=== PATIENT | female | born 1940 | race Caucasian/White ===

== ENCOUNTER → 2016-04-22 | Outpatient (CLI) | payer MEDICARE, OTHER ==
[2015-11-27 13:08] VITALS: BP 135/73
[~2016-04-22] MED LIST: ACET325T9 PO; AREDIA IM; ASPI-482 PO; ATOR20TA PO; BENA20TA2 PO; CA C1TAB28 PO; CHOL20004 PO; D3/E1CAP PO; DIPH25CA58 PO; DOCU-27 PO; EXEM25TA PO; FURO40TA4 PO; HYDR-2666 PO; INSU100I11 SQ; INSU100V SQ; INSU100V13 SQ; Insulin Detemir SQ; LANO250L TP; LOPE1LIQ7 PO; MAGN2400 PO; MENT5.8L4 MT; METO2.5T PO; MINE120C TP; MUPI22OI2 TP; OMEG1CAP6 PO; POTA20TA12 PO; POTA40LI3 PO; POTA99TA PO; RIVA20TA2 PO; SENN-6 PO; TAMO10TA PO; TAMOXIFEN CITRATE PO; TOLN30CR2 TP; VIT1CAPS12 PO; [UNRECOGNIZED DRUG - CODE]; [UNRECOGNIZED DRUG - CODE] IV; [UNRECOGNIZED DRUG - SUPPLY] TP
== END | disposition home or self-care (01) ==
LOC: SPEC 13:45
PROVIDERS: ATTEND Internal Medicine
DX: I82.401 Acute embolism and thrombosis of unspecified deep veins of right lower extremity (principal)
CPT/HCPCS: 36415; 85610

== ENCOUNTER → 2016-04-26 | Outpatient (CLI) | payer MEDICARE, OTHER ==
[2015-11-27 13:08] VITALS: BP 135/73
[2016-04-26 13:38] LABS: BILIRUBIN,URINE NEG (NEG); CLARITY,URINE CLEAR; COLOR,URINE YELLOW; GLUCOSE,URINE NEG (NEG); NITRITE,URINE NEG (NEG); RBC,URINE 0 /HPF (0-2); UROBILINOGEN,URINE 0.2 mg/dL (0.2 mg/dL)
[2016-04-26 13:39] LABS: BACTERIA,URINE 0 /HPF (0-FEW); SQUAMOUS EPITHELIAL CELL,UR OCC /LPF
== END | disposition home or self-care (01) ==
LOC: SPEC 12:55
PROVIDERS: ATTEND Internal Medicine
DX: N39.0 Urinary tract infection, site not specified (principal)
CPT/HCPCS: 81001; 87086; 87186

== ENCOUNTER → 2016-06-12 | Outpatient (CLI) | payer MEDICARE, OTHER ==
[2015-11-27 13:08] VITALS: BP 135/73
[2016-06-12 03:52] LABS: BILIRUBIN,URINE NEG (NEG); CLARITY,URINE HAZY; COLOR,URINE YELLOW; GLUCOSE,URINE NEG (NEG)
[2016-06-12 03:53] LABS: BACTERIA,URINE MOD /HPF (0-FEW); NITRITE,URINE NEG (NEG); SQUAMOUS EPITHELIAL CELL,UR OCC /LPF; UROBILINOGEN,URINE 0.2 mg/dL (0.2 mg/dL); WBC,URINE 20-40 /HPF (0-4)
== END | disposition home or self-care (01) ==
LOC: SPEC 03:24
PROVIDERS: ATTEND Internal Medicine
DX: N39.0 Urinary tract infection, site not specified (principal)
CPT/HCPCS: 81001; 87086

== ENCOUNTER 2016-08-03 19:11 | Emergency (ER) | payer MEDICARE, OTHER ==
[~2016-08-03] VITALS: Ht 175.3 cm; Wt 100.2 kg
[~2016-08-03 19:11] MED LIST changes: -CHOL20004 PO; +CHOL200074 PO; +DOCU-109 PO; -DOCU-27 PO; -HYDR-2666 PO; +HYDR-2758 PO
[2016-08-03] MEDS ORDERED: IV NORMAL SALINE 1,000ML 1,000 ML IV ONE (19:45)
[2016-08-03] MEDS ORDERED: IV NORMAL SALINE 500ML 500 ML IV ONE (19:45)
--- NOTE | 2016-08-03 19:54 | PHYS DOC ---
Past History Past Medical History: Cancer, Constipation, Diabetes, DVT, High Cholesterol, UTI, Other Past Surgical History: Cancer Surgery, Tonsillectomy, Other Smoking: Non-smoker Alcohol Use: Rarely Drug Use: None Adult General Chief Complaint Chief Complaint: FEVER HPI HPI Patient is a 75 year old female who presents with complaint of fever and cellulitis. Patient states that she started noticing redness and swelling to her right lower extremity. 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 Patient states that 2 weeks ago she was seen and treated with antibiotics for cellulitis. She states that symptoms resolved but then started suddenly again starting last night. The patient denies any associated nausea, vomiting, or weakness. 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 Tejal Donohue of oncology for treatment. The patient states that she is not currently on active chemotherapy medication at this time. Patient denies any thick yellow drainage from the wounds but states that there has been clear yellow drainage on her wound dressings. Review of Systems Review of Systems Constitutional: Fever [] Eyes: Denies change in visual acuity, redness, or eye pain [] HENT: Denies nasal congestion or sore throat [] Respiratory: Denies cough or shortness of breath [] Cardiovascular: Denies chest pain or edema [] GI: Denies abdominal pain, nausea, vomiting, bloody stools or diarrhea [] : Denies dysuria or hematuria [] Musculoskeletal: Denies back pain or joint pain [] Integument: Cellulitis right lower extremity [] Neurologic: Denies headache, focal weakness or sensory changes [] Current Medications Current Medications Current Medications Medications (Trade) Dose Ordered Sig/Lamont Start Time Stop Time Status Last Admin Dose Admin Clindamycin Phosphate 50 ml @ 100 mls/hr 1X ONCE 08/03/16 20:15 08/03/16 20:44 DC 08/03/16 20:47 Sodium Chloride 500 ml @ 0 mls/hr 1X ONCE 08/03/16 19:45 08/03/16 20:03 DC Allergies Allergies Allergies Coded Allergies Type Severity Reaction Last Updated Verified ibuprofen Allergy Unknown 08/03/16 Yes Physical Exam Physical Exam Constitutional: Alert, febrile, appears in no acute distress. [] HENT: Normocephalic, atraumatic, bilateral external ears normal, oropharynx moist, no oral exudates, nose normal. [] Eyes: PERRLA, EOMI, conjunctiva normal, no discharge. [] Neck: Normal range of motion, no tenderness, supple, no stridor. [] Cardiovascular:Heart rate regular rhythm, no murmur [] Lungs & Thorax: Bilateral breath sounds clear to auscultation [] Abdomen: Bowel sounds normal, soft, no tenderness, no masses, no pulsatile masses. [] Skin: Warm, dry, no erythema, no rash. [] Back: No tenderness, no CVA tenderness. [] Extremities: Right lower leg with erythema, induration, and warmth, mildly tender to palpation, dressings of right lateral lower leg ulcer and right foot ulcer with serous drainage. [] Neurologic: Alert and oriented X 3, normal motor function, normal sensory function, no focal deficits noted. [] Current Patient Data Vital Signs Vital Signs Date Time Temp Pulse Resp B/P (MAP) Pulse Ox O2 Delivery O2 Flow Rate FiO2 08/03/16 19:11 100.1 95 18 95 Room Air Lab Results Laboratory Tests Test 08/03/16 20:05 White Blood Count 5.7 x10^3/uL Red Blood Count 4.26 x10^6/uL Hemoglobin 13.0 g/dL Hematocrit 38.9 % Mean Corpuscular Volume 91 fL Mean Corpuscular Hemoglobin 31 pg Mean Corpuscular Hemoglobin Concent 34 g/dL Red Cell Distribution Width 15.7 % Platelet Count 89 x10^3/uL Neutrophils (%) (Auto) 81 % Lymphocytes (%) (Auto) 12 % Monocytes (%) (Auto) 6 % Eosinophils (%) (Auto) 0 % Basophils (%) (Auto) 1 % Neutrophils # (Auto) 4.6 x10^3uL Lymphocytes # (Auto) 0.7 x10^3/uL Monocytes # (Auto) 0.4 x10^3/uL Eosinophils # (Auto) 0.0 x10^3/uL Basophils # (Auto) 0.0 x10^3/uL Sodium Level 140 mmol/L Potassium Level 4.2 mmol/L Chloride Level 100 mmol/L Carbon Dioxide Level 31 mmol/L Anion Gap 9 Blood Urea Nitrogen 26 mg/dL Creatinine 1.2 mg/dL Estimated GFR (Cockcroft-Gault) 43.7 BUN/Creatinine Ratio 22 Glucose Level 111 mg/dL Lactic Acid Level 2.0 mmol/L Calcium Level 10.2 mg/dL Total Bilirubin 0.3 mg/dL Aspartate Amino Transf (AST/SGOT) 18 U/L Alanine Aminotransferase (ALT/SGPT) 24 U/L Alkaline Phosphatase 113 U/L Total Protein 8.3 g/dL Albumin 3.9 g/dL Albumin/Globulin Ratio 0.9 Current Medications Medications (Trade) Dose Ordered Sig/Lamont Route PRN Reason Start Time Stop Time Status Last Admin Dose Admin Sodium Chloride 1,000 ml @ 1,000 mls/hr 1X ONCE IV 08/03/16 19:45 08/03/16 20:44 DC 08/03/16 20:47 Sodium Chloride 500 ml @ 0 mls/hr 1X ONCE IV 08/03/16 19:45 08/03/16 20:03 DC Clindamycin Phosphate 50 ml @ 100 mls/hr 1X ONCE IV 08/03/16 20:15 08/03/16 20:44 DC 08/03/16 20:47 EKG EKG Not performed [] Radiology/Procedures Radiology/Procedures Not performed [] Course & Med Decision Making Course & Med Decision Making Pertinent Labs and Imaging studies reviewed. (See chart for details) Patient started on IV clindamycin in the emergency department. Patient's lab work appears stable at this time and patient does not meet sepsis criteria. The patient states that she would like to go home. The patient is a resident of the [facility] and has access to care under registered nurses and [employer]'s. I reassured the patient that outpatient treatment would be available and patient will be continued on Keflex and Bactrim for treatment of right lower extremity cellulitis. Recommended follow-up in 2 days with primary doctor and return to the emergency department for any worsening symptoms. Patient voiced understanding and in agreement with treatment plan. Dragon Disclaimer Dragon Disclaimer This chart was dictated in whole or in part using Voice Recognition software in a busy, high-work load, and often noisy Emergency Department environment. It may contain unintended and wholly unrecognized errors or omissions. Departure Departure: Impression: Primary Impression: Cellulitis of leg, right Disposition: HOME, SELF-CARE Condition: IMPROVED Referrals: CASS BAKER MD (PCP) Patient Instructions: Cellulitis Additional Instructions: Follow-up with your primary doctor in 2 days for reevaluation. Return to the emergency department for any worsening symptoms. Scripts Sulfamethoxazole/Trimethoprim (BACTRIM DS TABLET) 1 Each Tablet 1 TAB PO BID, #20 TAB Prov: ADELITA PECK MD 08/03/16 Cephalexin (KEFLEX) 500 Mg Capsule 1 CAP PO TID, #30 CAP Prov: ADELITA PECK MD 08/03/16 ADELITA PECK MD Aug 03, 2016 19:54
[2016-08-03] MEDS ORDERED: CLINDAMYCIN 600MG PREMIX 50 ML IV ONE (20:15)
[2016-08-03 20:35] LABS: BASO % 1 % (0-3); EOS % 0 % (0-3); HEMATOCRIT 38.9 % (36.0-47.0); LYMPH # 0.7 x10^3/uL (1.0-4.8); LYMPH % 12 % (24-48); MEAN CORPUSCULAR HEMOGLOBIN 31 pg (25-35); MEAN CORPUSCULAR HGB CONC 34 g/dL (31-37); MEAN CORPUSCULAR VOLUME 91 fL (79-100); MONO # 0.4 x10^3/uL (0.0-1.1); MONO % 6 % (0-9); NEUT # 4.6 x10^3uL (1.8-7.7); NEUT % 81 % (31-73); PLATELET COUNT 89 x10^3/uL (140-400); RED BLOOD COUNT 4.26 x10^6/uL (3.50-5.40); RED CELL DISTRIBUTION WIDTH 15.7 % (11.5-14.5); WHITE BLOOD COUNT 5.7 x10^3/uL (4.0-11.0)
[2016-08-03 20:43] LABS: ALBUMIN 3.9 g/dL (3.4-5.0); ALBUMIN/GLOBULIN RATIO 0.9 (1.0-1.7); CALCIUM 10.2 mg/dL (8.5-10.1); CREATININE 1.2 mg/dL (0.6-1.0); GFR 43.7; POTASSIUM 4.2 mmol/L (3.5-5.1); TOTAL BILIRUBIN 0.3 mg/dL (0.2-1.0); TOTAL PROTEIN 8.3 g/dL (6.4-8.2)
[2016-08-03] MEDS ORDERED: SULF1TAB24 PO (20:59)
[2016-08-03] MEDS ORDERED: CEPH-264 PO (20:59)
[2016-08-03 21:54] VITALS: BP 152/84
== END 2016-08-03 22:10 | disposition home or self-care (01) ==
LOC: ER 19:11
DX: L03.115 Cellulitis of right lower limb (principal); E11.9 Type 2 diabetes mellitus without complications; E78.00 Pure hypercholesterolemia, unspecified; Z86.718 Personal history of other venous thrombosis and embolism; Z87.440 Personal history of urinary (tract) infections; Z88.6 Allergy status to analgesic agent
CPT/HCPCS: 36415; 80053; 83605; 85027; 87040; 99284; J3490; 96365; J7030

== ENCOUNTER → 2016-08-17 | Outpatient (CLI) | payer MEDICARE, OTHER ==
[2016-08-03 21:54] VITALS: BP 152/84
[~2016-08-17] MED LIST changes: +CEPH-264 PO; +SULF1TAB24 PO
[2016-08-18 04:10] LABS: HEMOGLOBIN A1C 6.9 % (4.8-5.6)
== END | disposition home or self-care (01) ==
LOC: SPEC 08:11
PROVIDERS: ATTEND Internal Medicine
DX: E11.40 Type 2 diabetes mellitus with diabetic neuropathy, unspecified (principal); I82.91 Chronic embolism and thrombosis of unspecified vein
CPT/HCPCS: 36415; 80061; 83036

== ENCOUNTER → 2016-10-12 | Outpatient (CLI) | payer MEDICARE, OTHER ==
[~2016-10-12] MED LIST changes: +IOHEXOL 240 MG/ML 50ML VIAL. ONE; +IOHEXOL 240 MG/ML 50ML VIAL. PO ONE; +IOHEXOL 300 MG/ML 75 ML VIAL. IV ONE
[2016-10-12 10:23] LABS: CREATININE 0.9 mg/dL (0.6-1.0); GFR 60.9
--- NOTE | 2016-10-12 16:24 | RAD ---
CT of the chest, abdomen and pelvis with contrast, 10/12/2016: History: Breast cancer follow-up with bone metastases Multidetector CT imaging was performed following oral and IV administration of contrast. The right breast is surgically absent. No axillary adenopathy is seen. There is calcific plaquing of the thoracic aorta without evidence of aneurysm. Several scattered coronary calcifications are noted. No mediastinal or hilar adenopathy is seen. There are small nonspecific bilateral thyroid nodules. There are a few scattered linear parenchymal scars. No pulmonary mass or significant consolidation is seen. There is no evidence of pleural fluid. There are scattered mixed lytic and sclerotic lesions in the bones. These lesions are best demonstrated in the sternum. There are rib lesions as well including the posterior aspect of the right ninth rib where there is a small associated extrapulmonary mass. Similar findings were present on the previous study. There are moderate scattered degenerative changes in the spine. The liver is enlarged measuring 24 cm in craniocaudad extent. No hepatic mass is identified. Small gallstones are present within the dependent aspect of the gallbladder. The gallbladder wall is not thickened. No pancreatic abnormality is seen. The spleen is unremarkable. Small low-density renal lesions are probably cysts, although several of these are too small to definitively characterize. The kidneys show no evidence of obstruction. No adrenal abnormality is detected. An inferior vena cava filter is in place. There are several small lymph nodes between the aorta and inferior vena cava considered to be of borderline size measuring 10 mm in width. There is an enlarged lymph node at the right common iliac artery level measuring 18 mm in short axis dimension. These nodes have increased slightly in size since the previous study of 12/24/2014. The right common iliac lymph node measured 15 mm in short axis dimension on the previous study. The uterus contains multiple calcified masses compatible with fibroids. A 2 x 3 cm cystic structure along the right side of the uterus is of similar size compared. The previous study. This is probably of ovarian origin. The bowel loops are not dilated. There is a small hiatal hernia. No free fluid is evident in the abdomen or pelvis. An internal fixation device is again noted at the right hip. There is extensive multifocal lytic and sclerotic metastatic disease, including the lumbar spine, sacrum and upper pelvis. This has progressed since 12/24/2014. There is an unchanged moderate vertebral compression deformity at L1. A mild superior endplate deformity at T9 is unchanged. Destructive changes at L5 have progressed with partial collapse of the inferior endplate. IMPRESSION: 1. Multifocal mixed lytic and sclerotic metastatic disease. The pelvic and lumbar spine lesions have progressed since 12/24/2014. Comparison with a more recent CT chest study of 11/11/2015 shows no definite progression of the sternal and rib lesions since that exam. 2. Right common iliac adenopathy and borderline periaortic adenopathy has progressed slightly since 12/24/2014. 3. Cholelithiasis. 4. Stable small right ovarian cyst. 5. Coronary artery disease. 6. Other miscellaneous chronic findings as described above. PQRS Compliance Statement: One or more of the following individualized dose reduction techniques were utilized for this examination: 1. Automated exposure control 2. Adjustment of the mA and/or kV according to patient size 3. Use of iterative reconstruction technique
== END | disposition home or self-care (01) ==
LOC: CT 09:32
PROVIDERS: ATTEND Internal Medicine Hematology & Oncology
DX: C79.51 Secondary malignant neoplasm of bone (principal); C79.89 Secondary malignant neoplasm of other specified sites; C50.911 Malignant neoplasm of unspecified site of right female breast; I70.0 Atherosclerosis of aorta; I10 Essential (primary) hypertension; I25.10 Atherosclerotic heart disease of native coronary artery without angina pectoris; E04.2 Nontoxic multinodular goiter; M89.9 Disorder of bone, unspecified; R16.0 Hepatomegaly, not elsewhere classified; K80.20 Calculus of gallbladder without cholecystitis without obstruction; R59.9 Enlarged lymph nodes, unspecified; K44.9 Diaphragmatic hernia without obstruction or gangrene; N83.201 Unspecified ovarian cyst, right side; Z17.0 Estrogen receptor positive status [ER+]; Z90.11 Acquired absence of right breast and nipple; Z96.641 Presence of right artificial hip joint
CPT/HCPCS: 36415; 71260; 74177; 82565; Q9966; Q9967

== ENCOUNTER → 2016-10-18 | Outpatient (CLI) | payer MEDICARE, OTHER ==
[~2016-10-18] MED LIST changes: -IOHEXOL 240 MG/ML 50ML VIAL. ONE; -IOHEXOL 240 MG/ML 50ML VIAL. PO ONE; -IOHEXOL 300 MG/ML 75 ML VIAL. IV ONE
== END | disposition home or self-care (01) ==
LOC: SPEC 15:41
PROVIDERS: ATTEND Internal Medicine
DX: E55.9 Vitamin D deficiency, unspecified (principal); C79.51 Secondary malignant neoplasm of bone; E11.40 Type 2 diabetes mellitus with diabetic neuropathy, unspecified; I10 Essential (primary) hypertension
CPT/HCPCS: 36415

== ENCOUNTER → 2016-11-08 | Outpatient (CLI) | payer MEDICARE, OTHER ==
[2016-11-08 16:42] LABS: ALBUMIN 3.4 g/dL (3.4-5.0); ALBUMIN/GLOBULIN RATIO 0.9 (1.0-1.7); CALCIUM 9.5 mg/dL (8.5-10.1); CREATININE 0.8 mg/dL (0.6-1.0); GFR 69.7; POTASSIUM 3.8 mmol/L (3.5-5.1); TOTAL BILIRUBIN 0.3 mg/dL (0.2-1.0)
[2016-11-08 17:51] LABS: BASO # 0.1 x10^3/uL (0.0-0.2); BASO % 1 % (0-3); EOS # 0.2 x10^3/uL (0.0-0.7); EOS % 3 % (0-3); HEMOGLOBIN 13.2 g/dL (12.0-15.5); LYMPH # 1.5 x10^3/uL (1.0-4.8); LYMPH % 18 % (24-48); MEAN CORPUSCULAR HEMOGLOBIN 35 pg (25-35); MEAN CORPUSCULAR HGB CONC 35 g/dL (31-37); MEAN CORPUSCULAR VOLUME 100 fL (79-100); MONO # 0.7 x10^3/uL (0.0-1.1); MONO % 9 % (0-9); NEUT % 70 % (31-73); PLATELET COUNT 124 x10^3/uL (140-400); RED BLOOD COUNT 3.79 x10^6/uL (3.50-5.40); WHITE BLOOD COUNT 8.6 x10^3/uL (4.0-11.0)
== END | disposition home or self-care (01) ==
LOC: SPEC 16:22
PROVIDERS: ATTEND Internal Medicine Hematology & Oncology
DX: C79.51 Secondary malignant neoplasm of bone (principal); C50.911 Malignant neoplasm of unspecified site of right female breast
CPT/HCPCS: 36415; 80053; 85025

== ENCOUNTER → 2016-12-12 | Outpatient (CLI) | payer MEDICARE, OTHER ==
[2016-12-12 16:15] LABS: BASO # 0.1 x10^3/uL (0.0-0.2); BASO % 1 % (0-3); EOS # 0.1 x10^3/uL (0.0-0.7); EOS % 2 % (0-3); HEMATOCRIT 40.1 % (36.0-47.0); HEMOGLOBIN 13.7 g/dL (12.0-15.5); LYMPH # 1.4 x10^3/uL (1.0-4.8); LYMPH % 22 % (24-48); MEAN CORPUSCULAR HEMOGLOBIN 35 pg (25-35); MEAN CORPUSCULAR HGB CONC 34 g/dL (31-37); MEAN CORPUSCULAR VOLUME 102 fL (79-100); MONO # 0.6 x10^3/uL (0.0-1.1); MONO % 10 % (0-9); NEUT # 4.1 x10^3uL (1.8-7.7); NEUT % 65 % (31-73); PLATELET COUNT 141 x10^3/uL (140-400); RED BLOOD COUNT 3.91 x10^6/uL (3.50-5.40); RED CELL DISTRIBUTION WIDTH 16.3 % (11.5-14.5); WHITE BLOOD COUNT 6.3 x10^3/uL (4.0-11.0)
[2016-12-12 16:16] LABS: ALBUMIN 3.6 g/dL (3.4-5.0); ALBUMIN/GLOBULIN RATIO 0.9 (1.0-1.7); CALCIUM 9.3 mg/dL (8.5-10.1); CREATININE 0.9 mg/dL (0.6-1.0); GFR 60.7; POTASSIUM 4.3 mmol/L (3.5-5.1); TOTAL BILIRUBIN 0.3 mg/dL (0.2-1.0); TOTAL PROTEIN 7.5 g/dL (6.4-8.2)
== END | disposition home or self-care (01) ==
LOC: SPEC 15:25
PROVIDERS: ATTEND Internal Medicine
DX: Z51.11 Encounter for antineoplastic chemotherapy (principal)
CPT/HCPCS: 36415; 80053; 85025

== ENCOUNTER → 2016-12-22 | Outpatient (CLI) | payer MEDICARE, OTHER ==
[2016-12-23 01:08] LABS: HEMOGLOBIN A1C 7.1 % (4.8-5.6)
== END | disposition home or self-care (01) ==
LOC: SPEC 07:37
PROVIDERS: ATTEND Internal Medicine
DX: E11.40 Type 2 diabetes mellitus with diabetic neuropathy, unspecified (principal); E78.5 Hyperlipidemia, unspecified
CPT/HCPCS: 36415; 80061; 83036

== ENCOUNTER → 2016-12-26 | Outpatient (CLI) | payer MEDICARE, OTHER ==
[2016-12-26 17:52] LABS: ALBUMIN 3.4 g/dL (3.4-5.0); ALBUMIN/GLOBULIN RATIO 0.8 (1.0-1.7); CALCIUM 9.7 mg/dL (8.5-10.1); CREATININE 0.7 mg/dL (0.6-1.0); GFR 81.1; POTASSIUM 3.9 mmol/L (3.5-5.1); TOTAL BILIRUBIN 0.3 mg/dL (0.2-1.0); TOTAL PROTEIN 7.7 g/dL (6.4-8.2)
== END | disposition home or self-care (01) ==
LOC: SPEC 16:25
PROVIDERS: ATTEND Social Worker Clinical
DX: Z51.0 Encounter for antineoplastic radiation therapy (principal); Z85.89 Personal history of malignant neoplasm of other organs and systems; Z85.3 Personal history of malignant neoplasm of breast
CPT/HCPCS: 36415; 80053; 86300

== ENCOUNTER → 2016-12-27 | Outpatient (CLI) | payer MEDICARE, OTHER ==
[2016-12-27 15:39] LABS: BASO # 0.1 x10^3/uL (0.0-0.2); BASO % 1 % (0-3); EOS # 0.1 x10^3/uL (0.0-0.7); EOS % 2 % (0-3); HEMATOCRIT 40.2 % (36.0-47.0); HEMOGLOBIN 13.7 g/dL (12.0-15.5); LYMPH # 1.3 x10^3/uL (1.0-4.8); LYMPH % 18 % (24-48); MEAN CORPUSCULAR HEMOGLOBIN 35 pg (25-35); MEAN CORPUSCULAR HGB CONC 34 g/dL (31-37); MEAN CORPUSCULAR VOLUME 102 fL (79-100); MONO # 0.8 x10^3/uL (0.0-1.1); MONO % 11 % (0-9); NEUT # 4.9 x10^3uL (1.8-7.7); NEUT % 68 % (31-73); PLATELET COUNT 160 x10^3/uL (140-400); RED BLOOD COUNT 3.94 x10^6/uL (3.50-5.40); RED CELL DISTRIBUTION WIDTH 16.6 % (11.5-14.5); WHITE BLOOD COUNT 7.2 x10^3/uL (4.0-11.0)
== END | disposition home or self-care (01) ==
LOC: SPEC 15:19
DX: C79.51 Secondary malignant neoplasm of bone (principal); C50.911 Malignant neoplasm of unspecified site of right female breast
CPT/HCPCS: 36415; 85025

== ENCOUNTER → 2017-02-03 | Outpatient (CLI) | payer MEDICARE, OTHER ==
[2017-02-03 14:03] LABS: BASO # 0.1 x10^3/uL (0.0-0.2); BASO % 1 % (0-3); EOS # 0.2 x10^3/uL (0.0-0.7); EOS % 3 % (0-3); HEMATOCRIT 41.3 % (36.0-47.0); HEMOGLOBIN 13.9 g/dL (12.0-15.5); LYMPH # 1.3 x10^3/uL (1.0-4.8); LYMPH % 23 % (24-48); MEAN CORPUSCULAR HEMOGLOBIN 35 pg (25-35); MEAN CORPUSCULAR HGB CONC 34 g/dL (31-37); MEAN CORPUSCULAR VOLUME 103 fL (79-100); MONO # 0.6 x10^3/uL (0.0-1.1); MONO % 10 % (0-9); NEUT # 3.6 x10^3uL (1.8-7.7); NEUT % 63 % (31-73); PLATELET COUNT 146 x10^3/uL (140-400); RED BLOOD COUNT 4.01 x10^6/uL (3.50-5.40); RED CELL DISTRIBUTION WIDTH 18.6 % (11.5-14.5); WHITE BLOOD COUNT 5.8 x10^3/uL (4.0-11.0)
[2017-02-03 14:19] LABS: ALBUMIN 3.6 g/dL (3.4-5.0); ALBUMIN/GLOBULIN RATIO 0.9 (1.0-1.7); CALCIUM 9.4 mg/dL (8.5-10.1); CREATININE 0.7 mg/dL (0.6-1.0); GFR 81.1; POTASSIUM 4.6 mmol/L (3.5-5.1); TOTAL BILIRUBIN 0.4 mg/dL (0.2-1.0); TOTAL PROTEIN 7.4 g/dL (6.4-8.2)
== END | disposition home or self-care (01) ==
LOC: SPEC 13:43
PROVIDERS: ATTEND Internal Medicine Hematology & Oncology
DX: C79.51 Secondary malignant neoplasm of bone (principal); C50.911 Malignant neoplasm of unspecified site of right female breast
CPT/HCPCS: 36415; 80053; 85025; 86300

== ENCOUNTER → 2017-03-01 | Outpatient (CLI) | payer MEDICARE, OTHER | END | disposition home or self-care (01) | LOC: SPEC 12:02 | PROVIDERS: ATTEND Family Medicine | DX: L97.512 Non-pressure chronic ulcer of other part of right foot with fat layer exposed (principal) | CPT/HCPCS: 36415; 85651 ==

== ENCOUNTER → 2017-03-02 | Outpatient (CLI) | payer MEDICARE, OTHER ==
--- NOTE | 2017-03-02 15:41 | RAD ---
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 Comparison: Right foot 11/13/2014. Findings: There are postsurgical changes of the mid shaft first metatarsal, base of the first proximal phalanx and mid shaft fifth metatarsal with fully threaded orthopedic screws which remain intact. There is diffuse bony demineralization. Prior resection at the level of the second proximal phalanx and fourth proximal phalanx. There is moderate mid and forefoot degenerative changes with joint space narrowing and osteophytic spurring. Pes planus deformity of the foot is noted. Enthesophyte formation at the insertion of the Achilles on the calcaneus. Minimal infracalcaneal spur and. Vascular calcifications are noted in the lower leg and hindfoot. No evidence of acute fracture. There is smooth periosteal reaction at the posterior distal fibula seen on the lateral view. Impression: 1. Interval second toe resection at the level of the proximal phalanx. 2. Prior fourth toe resection. 3. Diffuse osteopenia with no radiographic evidence of osteomyelitis. If there is continued clinical concern, three-phase bone scan could be obtained. 4. Smooth periosteal reaction of the distal fibula which is only partially visualized, commonly seen with chronic venous stasis. Clinical correlation is recommended. Dedicated ankle radiographs could be obtained for further evaluation. 5. Pes planus. 6. Moderate scattered osteoarthritis.
== END | disposition home or self-care (01) ==
LOC: DXRAD 13:41
PROVIDERS: ATTEND Family Medicine
DX: E11.621 Type 2 diabetes mellitus with foot ulcer (principal); M19.071 Primary osteoarthritis, right ankle and foot; M21.41 Flat foot [pes planus] (acquired), right foot; Z79.4 Long term (current) use of insulin
CPT/HCPCS: 73630

== ENCOUNTER → 2017-03-16 | Outpatient (CLI) | payer MEDICARE, OTHER ==
[2017-03-17 02:12] LABS: ALBUMIN 3.6 g/dL (3.4-5.0); ALBUMIN/GLOBULIN RATIO 0.9 (1.0-1.7); CALCIUM 9.8 mg/dL (8.5-10.1); GFR 53.8; POTASSIUM 4.3 mmol/L (3.5-5.1); TOTAL BILIRUBIN 0.3 mg/dL (0.2-1.0); TOTAL PROTEIN 7.5 g/dL (6.4-8.2)
== END | disposition home or self-care (01) ==
LOC: SPEC 23:11
PROVIDERS: ATTEND Internal Medicine Hematology & Oncology
DX: C50.911 Malignant neoplasm of unspecified site of right female breast (principal); C79.51 Secondary malignant neoplasm of bone
CPT/HCPCS: 36415; 80053; 86300

== ENCOUNTER → 2017-03-17 | Outpatient (CLI) | payer MEDICARE, OTHER ==
[2017-03-17 12:17] LABS: BASO # 0.1 x10^3/uL (0.0-0.2); BASO % 1 % (0-3); EOS # 0.2 x10^3/uL (0.0-0.7); EOS % 3 % (0-3); HEMATOCRIT 41.6 % (36.0-47.0); HEMOGLOBIN 14.2 g/dL (12.0-15.5); LYMPH # 1.3 x10^3/uL (1.0-4.8); LYMPH % 20 % (24-48); MEAN CORPUSCULAR HEMOGLOBIN 35 pg (25-35); MEAN CORPUSCULAR HGB CONC 34 g/dL (31-37); MEAN CORPUSCULAR VOLUME 102 fL (79-100); MONO # 0.7 x10^3/uL (0.0-1.1); MONO % 11 % (0-9); NEUT # 4.1 x10^3uL (1.8-7.7); NEUT % 65 % (31-73); PLATELET COUNT 148 x10^3/uL (140-400); RED BLOOD COUNT 4.08 x10^6/uL (3.50-5.40); WHITE BLOOD COUNT 6.2 x10^3/uL (4.0-11.0)
== END | disposition home or self-care (01) ==
LOC: SPEC 11:46
PROVIDERS: ATTEND Internal Medicine Hematology & Oncology
DX: C50.911 Malignant neoplasm of unspecified site of right female breast (principal); C79.51 Secondary malignant neoplasm of bone
CPT/HCPCS: 36415; 85025

== ENCOUNTER → 2017-04-16 | Outpatient (CLI) | payer MEDICARE, OTHER ==
[~2017-04-16] MED LIST changes: +CLIN300C8 PO
== END | disposition home or self-care (01) ==
LOC: LAB 15:13
PROVIDERS: ATTEND Internal Medicine
DX: E55.9 Vitamin D deficiency, unspecified (principal); I12.9 Hypertensive chronic kidney disease with stage 1 through stage 4 chronic kidney disease, or unspecified chronic kidney disease; E11.22 Type 2 diabetes mellitus with diabetic chronic kidney disease; N18.3 Chronic kidney disease, stage 3 (moderate)
CPT/HCPCS: 82306

== ENCOUNTER → 2017-04-18 | Outpatient (CLI) | payer MEDICARE, OTHER ==
[~2017-04-18] MED LIST changes: -CLIN300C8 PO
[2017-04-19 02:08] LABS: HEMOGLOBIN A1C 7.4 % (4.8-5.6)
== END ==
LOC: SPEC 07:13
PROVIDERS: ATTEND Internal Medicine
DX: E78.5 Hyperlipidemia, unspecified (principal); E11.40 Type 2 diabetes mellitus with diabetic neuropathy, unspecified; E55.9 Vitamin D deficiency, unspecified; E63.9 Nutritional deficiency, unspecified
CPT/HCPCS: 36415; 80061; 82306; 83036

== ENCOUNTER 2017-05-13 14:24 | Emergency (ER) | payer MEDICARE, OTHER ==
[~2017-05-13] VITALS: Ht 175.3 cm; Wt 101.8 kg
--- NOTE | 2017-05-13 14:28 | PHYS DOC ---
Past History Past Medical History: Cancer, Constipation, Diabetes, DVT, High Cholesterol, Hypertension, UTI, Other Past Surgical History: Cancer Surgery, Tonsillectomy, Other Smoking: Non-smoker Alcohol Use: None Drug Use: None Adult General Chief Complaint Chief Complaint: cellulitis HPI HPI Patient is a 76 year old female who presents with right lower leg redness. She states she's had an infection in this leg and an open wound for several months. She states she has wound care that evaluates and keeps it wrapped for her. She states over the last 3-5 days they've noticed increasing redness around her calf. She denies any fevers chills nausea or vomiting. Wound care called the wound care physician who wanted to be evaluated in the ER. She' s been on antibiotics before but is been quite some time. She states the swelling of her leg is normal. She has no fevers or chills no nausea or vomiting. Review of Systems Review of Systems Constitutional: Denies fever or chills [] Eyes: Denies change in visual acuity, redness, or eye pain [] HENT: Denies nasal congestion or sore throat [] Respiratory: Denies cough or shortness of breath [] Cardiovascular: No additional information not addressed in HPI [] GI: Denies abdominal pain, nausea, vomiting, bloody stools or diarrhea [] : Denies dysuria or hematuria [] Musculoskeletal: Denies back pain or joint pain [] Integument: Positive for redness of her right lower leg Neurologic: Denies headache, focal weakness or sensory changes [] Endocrine: Denies polyuria or polydipsia [] All other systems were reviewed and found to be within normal limits, except as documented in this note. Allergies Allergies Allergies Coded Allergies Type Severity Reaction Last Updated Verified ibuprofen Allergy Unknown 08/03/16 Yes Physical Exam Physical Exam Constitutional: Well developed, well nourished, no acute distress, non-toxic appearance. [] HENT: Normocephalic, atraumatic, bilateral external ears normal, oropharynx moist, no oral exudates, nose normal. [] Eyes: PERRLA, EOMI, conjunctiva normal, no discharge. [] Neck: Normal range of motion, no tenderness, supple, no stridor. [] Cardiovascular:Heart rate regular rhythm, no murmur [] Lungs & Thorax: Bilateral breath sounds clear to auscultation [] Abdomen: Bowel sounds normal, soft, no tenderness, no masses, no pulsatile masses. [] Skin: Warm, dry, mild erythema and warmth around the calf of her right lower extremity Back: No tenderness, no CVA tenderness. [] Extremities: No tenderness, no cyanosis, no clubbing, ROM intact, 1+ lower extremity edema, right leg missing several toes, open wound on right lateral malleolus. Neurologic: Alert and oriented X 3, normal motor function, normal sensory function, no focal deficits noted. [] Psychologic: Affect normal, judgement normal, mood normal. [] EKG EKG [] Radiology/Procedures Radiology/Procedures [] Impressions: Lower extremity cellulitis Course & Med Decision Making Course & Med Decision Making Pertinent Labs and Imaging studies reviewed. (See chart for details) [facility] and states she has a hospital bed and nurse's a check on her frequently. She has erythema of her right lower leg that mildly warm to touch. She does not have any abnormalities with her labs. She does have a history of diabetes, DVT on Xeralto, dyslipidemia. At this point we'll start 300 mg clindamycin to 8 hours for 10 days and have wound care reevaluate. Patient's agreeable plans being discharged in stable condition at this time. Versus antibiotics was provided in the ER. Dragon Disclaimer Dragon Disclaimer This electronic medical record was generated, in whole or in part, using a voice recognition dictation system. Departure Departure: Impression: Primary Impression: Cellulitis of leg, right Disposition: 01 HOME, SELF-CARE Condition: STABLE Referrals: CASS BAKER MD (PCP) Patient Instructions: Cellulitis Additional Instructions: Your being discharged home with antibiotics they can start taking 1 tablet every 8 hours for next 10 days. Your labs do not show any acute abnormalities therefore I'm comfortable sending you home treatment is as an outpatient especially since you have wound care and other healthcare providers watching this. If you develop high fevers, worsening swelling of your leg with redness, uncontrolled nausea vomiting or other concerns please return back to the ER. Scripts Clindamycin Hcl (CLINDAMYCIN HCL) 300 Mg Capsule 1 CAP PO TID, #30 CAP Prov: MADISYN GILES MD 05/13/17 MADISYN GILES MD May 13, 2017 14:28
[2017-05-13 15:42] LABS: BASO # 0.1 x10^3/uL (0.0-0.2); BASO % 1 % (0-3); EOS # 0.1 x10^3/uL (0.0-0.7); EOS % 2 % (0-3); HEMOGLOBIN 13.9 g/dL (12.0-15.5); LYMPH # 1.2 x10^3/uL (1.0-4.8); LYMPH % 19 % (24-48); MEAN CORPUSCULAR HEMOGLOBIN 34 pg (25-35); MEAN CORPUSCULAR HGB CONC 34 g/dL (31-37); MEAN CORPUSCULAR VOLUME 101 fL (79-100); MONO # 0.7 x10^3/uL (0.0-1.1); MONO % 11 % (0-9); NEUT % 66 % (31-73); PLATELET COUNT 145 x10^3/uL (140-400); RED BLOOD COUNT 4.06 x10^6/uL (3.50-5.40); RED CELL DISTRIBUTION WIDTH 17.1 % (11.5-14.5); WHITE BLOOD COUNT 6.1 x10^3/uL (4.0-11.0)
[2017-05-13 15:49] LABS: ALBUMIN 3.4 g/dL (3.4-5.0); ALBUMIN/GLOBULIN RATIO 0.8 (1.0-1.7); CALCIUM 9.6 mg/dL (8.5-10.1); GFR 53.8; POTASSIUM 4.1 mmol/L (3.5-5.1); TOTAL BILIRUBIN 0.4 mg/dL (0.2-1.0); TOTAL PROTEIN 7.6 g/dL (6.4-8.2)
[2017-05-13] MEDS ORDERED: CLIN300C8 PO (16:08)
[2017-05-13 16:12] VITALS: BP 121/54
[2017-05-13] MEDS ORDERED: CLINDAMYCIN HCL 150 MG CAPSULE PO ONE (16:15)
== END 2017-05-13 16:39 | disposition home or self-care (01) ==
LOC: ER 14:24
DX: L03.115 Cellulitis of right lower limb (principal); E11.9 Type 2 diabetes mellitus without complications; Z86.718 Personal history of other venous thrombosis and embolism; E78.00 Pure hypercholesterolemia, unspecified; I10 Essential (primary) hypertension; Z87.440 Personal history of urinary (tract) infections; Z88.6 Allergy status to analgesic agent
CPT/HCPCS: 36415; 80053; 85025; 99284

== ENCOUNTER → 2017-08-22 | Outpatient (CLI) | payer MEDICARE, OTHER ==
[~2017-08-22] MED LIST changes: +AMIN30LI PO; -BENA20TA2 PO; +BENA20TA4 PO; +BIFI4CAP PO; +CARB15DR3 EACHEYE; +CLIN300C8 PO; +PIPE2.255 IV; -SENN-6 PO; +SENN-82 PO; +VANC1VIA3 IV
== END ==
LOC: OPINF 12:52
PROVIDERS: ATTEND Internal Medicine
DX: Z45.2 Encounter for adjustment and management of vascular access device (principal); Z79.2 Long term (current) use of antibiotics
CPT/HCPCS: 36569; 76937

== ENCOUNTER 2017-09-18 12:07 | Inpatient (IN) | payer MEDICARE, OTHER ==
[~2017-09-18] VITALS: Ht 175.3 cm; Wt 107.7 kg
[~2017-09-18 12:07] MED LIST changes: -AMIN30LI PO; -BIFI4CAP PO; -CARB15DR3 EACHEYE; -PIPE2.255 IV; -VANC1VIA3 IV
[2017-09-18] MEDS ORDERED: IV NORMAL SALINE 1,000ML 1,000 ML IV SCH (12:26)
[2017-09-18] MEDS ORDERED: VANCOMYCIN PER PHARMACY MC ONE (12:30)
[2017-09-18] MEDS ORDERED: ACETAMINOPHEN 325 MG TABLET PO ONE (12:45)
[2017-09-18] MEDS ORDERED: VANCOMYCIN 2 GM in IV NORMAL SALINE 500ML 500 ML IV ONE (13:00)
[2017-09-18 13:05] LABS: BASO # 0.1 x10^3/uL (0.0-0.2); BASO % 1 % (0-3); EOS % 0 % (0-3); HEMOGLOBIN 14.3 g/dL (12.0-15.5); LYMPH # 0.4 x10^3/uL (1.0-4.8); LYMPH % 4 % (24-48); MEAN CORPUSCULAR HEMOGLOBIN 35 pg (25-35); MEAN CORPUSCULAR HGB CONC 35 g/dL (31-37); MEAN CORPUSCULAR VOLUME 101 fL (79-100); MONO # 0.8 x10^3/uL (0.0-1.1); MONO % 7 % (0-9); NEUT # 10.3 x10^3uL (1.8-7.7); NEUT % 89 % (31-73); PLATELET COUNT 147 x10^3/uL (140-400); RED BLOOD COUNT 4.06 x10^6/uL (3.50-5.40); WHITE BLOOD COUNT 11.6 x10^3/uL (4.0-11.0)
[2017-09-18] MEDS ORDERED: IV NORMAL SALINE 50ML 50 ML ONE (13:09)
[2017-09-18] MEDS ORDERED: ceFAZolin SODIUM 1 GM VIAL ONE (13:10)
[2017-09-18 13:19] LABS: ALBUMIN 3.5 g/dL (3.4-5.0); ALBUMIN/GLOBULIN RATIO 0.8 (1.0-1.7); CALCIUM 9.9 mg/dL (8.5-10.1); CREATININE 0.9 mg/dL (0.6-1.0); GFR 60.7; POTASSIUM 3.2 mmol/L (3.5-5.1); TOTAL BILIRUBIN 0.5 mg/dL (0.2-1.0); TOTAL PROTEIN 7.8 g/dL (6.4-8.2)
--- NOTE | 2017-09-18 14:19 | RAD ---
Examination: Lower Extremity Venous Doppler Ultrasound History: History right lower extremity pain Comparison: 11/11/2015 Procedure: James scale, color flow 2D and spectal waveform analysis images are obtained with and without compression in the area of the common femoral vein, superficial femoral vein - femoral vein junction, main femoral vein (superficial femoral vein) and popliteal vein. Veins of the proximal calf are also imaged. Findings: There is normal duplex flow, color flow and compressibility of all visualized vein segments. No evidence of deep venous thrombus is present. Impression: No evidence of DVT in the visualized right lower extremity venous system. Electronically signed by: Michoacano Tran MD (09/18/2017 2:15 PM) [id number]
[2017-09-18] MEDS ORDERED: POTASSIUM CHLORIDE 20 MEQ TABLET.ER. PO ONE (14:30)
[2017-09-18 16:01] VITALS: BP 106/62
--- NOTE | 2017-09-18 16:54 | PHYS DOC ---
Past History Past Medical History: Cancer, Diabetes, DVT, High Cholesterol, Hypertension, Other Past Surgical History: Cancer Surgery Smoking: Non-smoker Alcohol Use: None Drug Use: None Adult General Chief Complaint Chief Complaint: CELLULITIS HPI HPI 76-year-old female patient with history of cellulitis and diabetes medicines had right lower extremity cellulitis treatment with IV vancomycin with PICC line recently. Patient complaining of right lower extremity erythema and pain since yesterday like her previous episodes of cellulitis and had fever of 100.6 today. Patient denies nausea and vomiting, chest pain, shortness of breath, altered level of consciousness. 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 Review of Systems Review of Systems Constitutional: Reports fever Eyes: Denies change in visual acuity, redness, or eye pain [] HENT: Denies nasal congestion or sore throat [] Respiratory: Denies cough or shortness of breath [] Cardiovascular: No additional information not addressed in HPI [] GI: Denies abdominal pain, nausea, vomiting, bloody stools or diarrhea [] : Denies dysuria or hematuria [] Musculoskeletal: Denies back pain, reports joint pain [] Integument: Denies rash or skin lesions [] Neurologic: Denies headache, focal weakness or sensory changes [] Endocrine: Denies polyuria or polydipsia [] All other systems were reviewed and found to be within normal limits, except as documented in this note. Current Medications Current Medications Current Medications Medications (Trade) Dose Ordered Sig/Lamont Start Time Stop Time Status Last Admin Dose Admin Acetaminophen (Tylenol) 650 mg 1X ONCE 09/18/17 12:45 09/18/17 12:46 DC 09/18/17 13:25 650 MG Cefazolin Sodium (Ancef) 1 gm STK-MED ONCE 09/18/17 13:10 09/18/17 13:11 DC Cefazolin Sodium 1 gm/Sodium Chloride 50 ml @ 100 mls/hr 1X ONCE 09/18/17 12:30 09/18/17 12:59 DC 09/18/17 13:23 100 MLS/HR Sodium Chloride 50 ml @ As Directed STK-MED ONCE 09/18/17 13:09 09/18/17 13:11 DC Vancomycin HCl (Vanco Per Pharmacy) 1 each 1X ONCE 09/18/17 12:30 09/18/17 12:49 DC Vancomycin HCl 2 gm/Sodium Chloride 500 ml @ 250 mls/hr 1X ONCE 09/18/17 13:00 09/18/17 14:59 DC 09/18/17 14:37 250 MLS/HR Allergies Allergies Allergies Coded Allergies Type Severity Reaction Last Updated Verified ibuprofen Allergy Unknown 08/03/16 Yes Physical Exam Physical Exam Constitutional: Well developed, well nourished, mild distress, non-toxic appearance, febrile, T-100.8. [] HENT: Normocephalic, atraumatic, oropharynx moist, no oral exudates, nose normal. [] Eyes: PERRLA, EOMI, conjunctiva normal, no discharge. [] Neck: Normal range of motion, no tenderness, supple, no stridor. [] Cardiovascular:Heart rate regular rhythm, no murmur [] Lungs & Thorax: Bilateral breath sounds clear to auscultation [] Abdomen: Bowel sounds normal, soft, no tenderness, no masses, no pulsatile masses. [] Skin: Warm, dry, no erythema, no rash. [] Back: No tenderness, no CVA tenderness. 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 [] Neurologic: Alert and oriented X 3, normal motor function, normal sensory function, no focal deficits noted. [] Psychologic: Affect normal, judgement normal, mood normal. [] Current Patient Data Vital Signs Vital Signs Date Time Temp Pulse Resp B/P (MAP) Pulse Ox O2 Delivery O2 Flow Rate FiO2 09/18/17 16:01 98.9 90 20 106/62 (77) 92 Room Air Lab Results Laboratory Tests Test 09/18/17 12:53 09/18/17 16:00 White Blood Count 11.6 x10^3/uL (4.0-11.0) H Red Blood Count 4.06 x10^6/uL (3.50-5.40) Hemoglobin 14.3 g/dL (12.0-15.5) Hematocrit 41.0 % (36.0-47.0) Mean Corpuscular Volume 101 fL (79-100) H Mean Corpuscular Hemoglobin 35 pg (25-35) Mean Corpuscular Hemoglobin Concent 35 g/dL (31-37) Red Cell Distribution Width 17.0 % (11.5-14.5) H Platelet Count 147 x10^3/uL (140-400) Neutrophils (%) (Auto) 89 % (31-73) H Lymphocytes (%) (Auto) 4 % (24-48) L Monocytes (%) (Auto) 7 % (0-9) Eosinophils (%) (Auto) 0 % (0-3) Basophils (%) (Auto) 1 % (0-3) Neutrophils # (Auto) 10.3 x10^3uL (1.8-7.7) H Lymphocytes # (Auto) 0.4 x10^3/uL (1.0-4.8) L Monocytes # (Auto) 0.8 x10^3/uL (0.0-1.1) Eosinophils # (Auto) 0.0 x10^3/uL (0.0-0.7) Basophils # (Auto) 0.1 x10^3/uL (0.0-0.2) Sodium Level 139 mmol/L (136-145) Potassium Level 3.2 mmol/L (3.5-5.1) L Chloride Level 101 mmol/L (98-107) Carbon Dioxide Level 29 mmol/L (21-32) Anion Gap 9 (6-14) Blood Urea Nitrogen 23 mg/dL (7-20) H Creatinine 0.9 mg/dL (0.6-1.0) Estimated GFR (Cockcroft-Gault) 60.7 BUN/Creatinine Ratio 26 (6-20) H Glucose Level 131 mg/dL (70-99) H Lactic Acid Level 2.1 mmol/L (0.4-2.0) H 2.3 mmol/L (0.4-2.0) H Calcium Level 9.9 mg/dL (8.5-10.1) Total Bilirubin 0.5 mg/dL (0.2-1.0) Aspartate Amino Transferase (AST) 27 U/L (15-37) Alanine Aminotransferase (ALT) 35 U/L (14-59) Alkaline Phosphatase 88 U/L (46-116) Total Protein 7.8 g/dL (6.4-8.2) Albumin 3.5 g/dL (3.4-5.0) Albumin/Globulin Ratio 0.8 (1.0-1.7) L EKG EKG [] Radiology/Procedures Radiology/Procedures [[place] [address] IMAGING REPORT Signed PATIENT: MARTA RODRIGUEZ ACCOUNT: [id number] : 1940 LOCATION: ER AGE: 76 SEX: F EXAM STATUS: REG ER ORD. PHYSICIAN: KARMEN CHERY MD REASON: pain and erythema, history of DVT PROCEDURE: VENOUS LOWER EXTREMITY RIGHT Examination: Lower Extremity Venous Doppler Ultrasound History: History right lower extremity pain Comparison: 11/11/2015 Procedure: James scale, color flow 2D and spectal waveform analysis images are obtained with and without compression in the area of the common femoral vein, superficial femoral vein - femoral vein junction, main femoral vein (superficial femoral vein) and popliteal vein. Veins of the proximal calf are also imaged. Findings: There is normal duplex flow, color flow and compressibility of all visualized vein segments. No evidence of deep venous thrombus is present. Impression: No evidence of DVT in the visualized right lower extremity venous system. Electronically signed by: Michoacano Tran MD (09/18/2017 2:15 PM) [id number] DICTATED AND SIGNED BY: MICHOACANO TRAN MD DATE: 09/18/17 1413 CC: KARMEN CHERY MD; CASS BAKER MD ~ ] Course & Med Decision Making Course & Med Decision Making Pertinent Labs and Imaging studies reviewed. (See chart for details) Evaluation of patient in ER showed 76-year-old female patient with history of diabetes and right lower extremity cellulitis presented to right lower extremity pain and edema and erythema without sign of cellulitis and temperature of 100.8 without tachycardia or hypotension. Patient had leukocytosis and lactic acid of 2.1. Patient was treated with IV fluid and antibiotic and Dr. Chris accepted admission at 1320. [] Dragon Disclaimer Dragon Disclaimer This electronic medical record was generated, in whole or in part, using a voice recognition dictation system. Departure Departure: Impression: Primary Impression: Sepsis Additional Impressions: Cellulitis of leg, right Hypokalemia Fever Disposition: ADMITTED INPATIENT (@1320) Admitting Physician: Other (Dr. Jp Chris) Condition: IMPROVED Referrals: CASS BAKER MD (PCP) Problem Qualifiers KARMEN CHERY MD Sep 18, 2017 16:54
[2017-09-18] MEDS ORDERED: TOLNAFTATE 1% TOPICAL CREAM 15GM TUBE. TP PRN (17:00)
[2017-09-18] MEDS ORDERED: BIFI4CAP PO (17:12)
[2017-09-18] MEDS ORDERED: CARB15DR3 EACHEYE (17:12)
[2017-09-18] MEDS ORDERED: AMIN30LI PO (17:12)
--- NOTE | 2017-09-18 17:24 | NUR ---
Physician notified of positive sepsis screen, continue Vanco orders. BP stable, does not require fluid bolus. Patient stable at this time.
[2017-09-18] MEDS ORDERED: DOCUSATE SODIUM 100 MG CAPSULE PO PRN (17:45)
[2017-09-18] MEDS ORDERED: BENZOCAINE/MENTHOL LOZNGE 18'S BOX. PO PRN (17:45)
[2017-09-18] MEDS ORDERED: LOPERAMIDE 2 MG CAPSULE PO PRN (17:45)
[2017-09-18] MEDS ORDERED: HYDROcodone/APAP 5/325MG 1 TAB TABLET PO PRN (17:45)
[2017-09-18] MEDS ORDERED: MAGNESIUM HYDROXIDE 2,400 MG/30 ML ORAL.SUSP. PO PRN (17:45)
[2017-09-18] MEDS: RIVAROXABAN 10 MG TABLET. PO SCH (17:50)
[2017-09-18] MEDS: INSULIN LISPRO 300 UNITS/3 ML INSULN.PEN. SQ SCH (17:52)
[2017-09-18] MEDS: VANCOMYCIN PER PHARMACY MC PRN (18:03)
--- NOTE | 2017-09-18 18:15 | NUR ---
Pharmacy Vancomycin Dosing Note S:Consulted to monitor and dose vancomycin started 09/18/17. O:MARTA RODRIGUEZ is a 76 year old F with Cellulitis . Height: 5 feet, 9 inches Weight: 108.311794 kg [place] Body Weight: 66.20 Adjusted Body Weight: 83.28 Dosing Weight: Actual Other Antibiotics: None LABS: Last BUN: 23 Last Creatinine: 0.9 Creatinine Clearance: 61.93 Last WBC: 11.6 Last Platelets: 147 Vancomycin Dosing: Loading Dose: 2000 mg x1 Dosing Weight: Actual Target Trough: 15-20 A: Based on: Actual weight, renal function and indication P: 1. Begin Vancomycin 1500 mg IV q12h 2. Follow up Trough level on 09/19/17 at 1430 3. Pharmacy will continue to monitor, follow and adjust therapy as needed. OSMIN MAGALLANES, 09/18/17 [id number]
--- NOTE | 2017-09-18 18:30 | NUR ---
The patient, MARTA RODRIGUEZ, 76 y/o, F admitted by DAGO CHRIS DO, was given written information regarding hospital policies, unit procedures and contact persons. Valuables were checked and left in room. Patient alert and oriented x3, able to make needs known. States she comes to [facility] for right foot cellulitis a lot and that this is chronic. Patient states that she just had her PICC removed last week due to cellulitis and vanco treatment. Patient is feeling much better since arrival to ED. Denies complaints at this time and is requesting if Dr. Chris would place PICC line order for tomorrow. Will notify PICC nurse of possible need for line placement. Lower extremities elevated, appears red shiny and tight. Right foot ulcer dressed with Aquacel AG with foam dressing. Pt states that she follows up with [facility] wound care clinic. Pt able to verbalize POC, will continue to monitor.
[2017-09-18] MEDS ORDERED: PIP/TAZO PER PHARMACY MC PRN (19:30)
[2017-09-18] MEDS ORDERED: VANCOMYCIN PER PHARMACY MC PRN (19:30)
[2017-09-18 20:01] VITALS: BP 109/62
[2017-09-18] MEDS: POLYVINYL ALCOHOL/POVIDONE/PF OPHTH SOLUTION DROPERETTE. OU SCH (21:00)
[2017-09-18] MEDS: MINERAL OIL/PETROLATUM TOPICAL CREAM 113GM JAR. TP SCH (21:00)
[2017-09-18] MEDS: ATORVASTATIN CALCIUM 20 MG TABLET PO SCH (21:16)
[2017-09-18] MEDS: ASPIRIN ENTERIC COATED 81 MG TABLET.DR. PO SCH (21:16)
[2017-09-18] MEDS: LACTOBACILLUS RHAMNOSUS GG 1 CAPSULE. PO SCH (21:16)
[2017-09-18] MEDS: PIPERACILLIN/TAZOBACTAM 3.375 GM in IV NORMAL SALINE 50ML 50 ML IV SCH (21:16)
[2017-09-18] MEDS: POTASSIUM CHLORIDE 20 MEQ TABLET.ER. PO SCH (21:17)
[2017-09-18] MEDS: INSULIN GLARGINE 300 UNITS/3 ML INSULN.PEN. SQ SCH (21:31)
[2017-09-18 23:19] VITALS: BP 133/68
[2017-09-19] MEDS: PIPERACILLIN/TAZOBACTAM 3.375 GM in IV NORMAL SALINE 50ML 50 ML IV SCH ×4 (03:07→20:32)
[2017-09-19] MEDS: VANCOMYCIN 1.5 GM in IV NORMAL SALINE 500ML 500 ML IV SCH ×2 (03:55→15:33)
[2017-09-19 05:25] VITALS: BP 109/59
[2017-09-19 06:20] LABS: HEMATOCRIT 36.7 % (36.0-47.0); HEMOGLOBIN 12.5 g/dL (12.0-15.5); RED BLOOD COUNT 3.6 x10^6/uL (3.50-5.40); RED CELL DISTRIBUTION WIDTH 17.1 % (11.5-14.5); WHITE BLOOD COUNT 8.1 x10^3/uL (4.0-11.0)
[2017-09-19 06:26] LABS: ALBUMIN 2.7 g/dL (3.4-5.0); ALBUMIN/GLOBULIN RATIO 0.7 (1.0-1.7); CREATININE 0.9 mg/dL (0.6-1.0); GFR 60.7; POTASSIUM 3.8 mmol/L (3.5-5.1); TOTAL BILIRUBIN 0.5 mg/dL (0.2-1.0); TOTAL PROTEIN 6.5 g/dL (6.4-8.2)
[2017-09-19] MEDS: MULTIVITAMIN I-VITE TABLET. PO SCH (08:17)
[2017-09-19] MEDS: DOCUSATE SODIUM 100 MG CAPSULE PO SCH (08:17)
[2017-09-19] MEDS: LACTOBACILLUS RHAMNOSUS GG 1 CAPSULE. PO SCH ×2 (08:17→20:33)
[2017-09-19] MEDS: FUROSEMIDE 40 MG TABLET PO SCH (08:18)
[2017-09-19] MEDS: POTASSIUM CHLORIDE 20 MEQ TABLET.ER. PO SCH ×2 (08:18→20:33)
[2017-09-19] MEDS: INSULIN LISPRO 300 UNITS/3 ML INSULN.PEN. SQ SCH ×3 (08:28→17:17)
[2017-09-19] MEDS: INSULIN GLARGINE 300 UNITS/3 ML INSULN.PEN. SQ SCH ×2 (08:29→20:50)
[2017-09-19] MEDS ORDERED: metOLazone 2.5 MG TABLET PO PRN (09:00)
[2017-09-19] MEDS ORDERED: NON FORMULARY ITEM (Amino Acids/Protein Hydrolys (Pro-Stat Liquid) 30 ML) PO SCH (09:00)
--- NOTE | 2017-09-19 09:28 | NUR ---
Pt is alert and oriented x4. States she is doing well. Mild pain in lower extremities at this time. BLE reddened and RLE has purplish color. 1 plus pedal pulses. Swelling in BLE 3+. Will continue to monitor.
[2017-09-19 10:41] VITALS: BP 108/58
[2017-09-19 14:44] LABS: VANC TR 17.4 mcg/mL (10.0-20.0)
[2017-09-19] MEDS: VANCOMYCIN PER PHARMACY MC PRN ×2 (15:21→15:22)
--- NOTE | 2017-09-19 15:22 | NUR ---
Pharmacy Vancomycin Dosing Note S:Consulted to monitor and dose vancomycin started 09/18/17. O:MARTA RODRIGUEZ is a 76 year old F with Cellulitis . Height: 5 feet, 9 inches Weight: 109.342952 kg [place] Body Weight: 66.20 Adjusted Body Weight: 83.72 Dosing Weight: Actual Other Antibiotics: ZOSYN LABS: Last BUN: 16 Last Creatinine: 0.9 Creatinine Clearance: 62.3 Last WBC: 8.1 Last Platelets: 118 Drug Levels: Last Trough level: 16.2 on 09/19/17 at 1430 Last dose given 09/19/17 at 0300 Vancomycin Dosing: Loading Dose: 2000 mg x1 Dosing Weight: Actual Target Trough: 10-20 A: Based on today's vanco trough of 16.2, continue the same dose and frequency. P: 1. Continue Vancomycin 1500 mg IV q12h. 2. Follow up Trough level on 09/23/17 at 1430. 3. Pharmacy will continue to monitor, follow and adjust therapy as needed. LACON RODRIGUEZ [facility] 09/19/17 [id number]
[2017-09-19 16:25] VITALS: BP 114/60
--- NOTE | 2017-09-19 16:37 | PDOC1 ---
History of Present Illness History of Present Illness Patient is a 76-year-old Sister who presented to the emergency department with recurrence of right lower extremity cellulitis. She has history of metastatic breast cancer and diabetic neuropathy among other medical problems, she has a chronic nonhealing right diabetic foot ulcer. She states that for the past 2 days she been very tired and just not feeling well and not eating or drinking very much. Yesterday she began to notice redness at her right foot and lower leg and was found to be febrile with a temperature of 100.6 Fahrenheit. These symptoms were identical to her prior episodes of cellulitis, she recently finished a course of IV vancomycin and has had a PICC line numerous times. Her pain is controlled essentially with diabetic neuropathy, she denied any other associated nausea vomiting chest pain dyspnea or focal neurologic deficit. She was afebrile in the emergency department with a pulse of 90 bpm satting 92% on room air blood pressure was stable at 106/62. Her white blood cell count was elevated at 11.6, potassium 3.2 by mouth N 23 creatinine 0.9 lactic acid 2.1. Lower extremity Dopplers revealed no evidence of DVT in the right lower extremity. She was admitted to the hospital for sepsis and bilateral lower extremity cellulitis as well as hypokalemia. IV hydration and vancomycin the primary course of her treatment. On my evaluation she is napping with the lights dimmed in her room. She is very pleasant and denies any pain however still feeling very tired and weak. She denies any chest pain or trouble breathing and reports that symptoms are identical to her prior episodes of cellulitis. 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 See HPI for pertinent positives and negative responses, other jacobson all other systems are negative, non pertinent or non contributory Medications Current Medications Cefazolin Sodium 1 gm/Sodium Chloride 50 ml @ 100 mls/hr 1X ONCE IV Last administered on 09/18/17at 13:23; Admin Dose 100 MLS/HR; Start 09/18/17 at 12:30 ; Stop 09/18/17 at 12:59; Status DC Vancomycin HCl (Vanco Per Pharmacy) 1 each 1X ONCE MC Last administered on at 12:30; Admin Dose 1 EACH; Start 09/18/17 at 12:30; Stop 09/18/17 at 12: 49; Status DC Sodium Chloride 1,000 ml @ 1,000 mls/hr Q1H IV Last administered on 09/18/17at 13:24; Admin Dose 1,000 MLS/HR; Start 09/18/17 at 12:26; Stop 09/18/17 at 13:25 ; Status DC Acetaminophen (Tylenol) 650 mg 1X ONCE PO Last administered on 09/18/17at 13:25 ; Admin Dose 650 MG; Start 09/18/17 at 12:45; Stop 09/18/17 at 12:46; Status DC Vancomycin HCl 2 gm/Sodium Chloride 500 ml @ 250 mls/hr 1X ONCE IV Last administered on 09/18/17at 14:37; Admin Dose 250 MLS/HR; Start 09/18/17 at 13:00 ; Stop 09/18/17 at 14:59; Status DC Sodium Chloride 50 ml @ As Directed STK-MED ONCE .ROUTE ; Start 09/18/17 at 13: 09; Stop 09/18/17 at 13:11; Status DC Cefazolin Sodium (Ancef) 1 gm STK-MED ONCE .ROUTE ; Start 09/18/17 at 13:10; Stop 09/18/17 at 13:11; Status DC Potassium Chloride (Klor-Con) 40 meq 1X ONCE PO Last administered on at 14:47; Admin Dose 40 MEQ; Start 09/18/17 at 14:30; Stop 09/18/17 at 14:31; Status DC Atorvastatin Calcium (Lipitor) 40 mg HS PO Last administered on 09/18/17at 21:16 ; Admin Dose 40 MG; Start 09/18/17 at 21:00 Insulin Human Lispro (HumaLOG) 21 units BIDACLD SQ Last administered on at 12:12; Admin Dose 21 UNITS; Start 09/18/17 at 16:30 Potassium Chloride (Klor-Con) 40 meq BID PO Last administered on 09/19/17at 08: 18; Admin Dose 40 MEQ; Start 09/18/17 at 21:00 Tolnaftate (Tinactin) 1 diane PRN DAILY PRN TP Antifungal; Start 09/18/17 at 17: 00 Non-Formulary Medication (Amino Acids/ Protein Hydrolys (Pro-Stat Liquid)) 30 ml DAILY PO ; Start 09/19/17 at 09:00; Status UNV Aspirin (Aspirin Enteric Coated) 81 mg QHS PO Last administered on 09/18/17at 21 :16; Admin Dose 81 MG; Start 09/18/17 at 21:00 Lactobacillus Rhamnosus (Culturelle) 1 cap BID PO Last administered on at 08:17; Admin Dose 1 CAP; Start 09/18/17 at 21:00 Artificial Tears (Refresh Classic) 1 drop QHS OU ; Start 09/18/17 at 21:00 Docusate Sodium (Colace) 100 mg PRN DAILY PRN PO CONSTIPATION; Start 09/18/17 at 17:45 Docusate Sodium (Colace) 200 mg DAILY PO Last administered on 09/19/17at 08:17; Admin Dose 200 MG; Start 09/19/17 at 09:00 Furosemide (Lasix) 40 mg DAILY PO Last administered on 09/19/17at 08:18; Admin Dose 40 MG; Start 09/19/17 at 09:00 Acetaminophen/ Hydrocodone Bitart (Lortab 5/325) 1 tab PRN BID PRN PO PAIN; Start 09/18/17 at 17:45 Insulin Glargine (Lantus) 42 units DAILY08 SQ Last administered on 09/19/17at 08 :29; Admin Dose 42 UNITS; Start 09/19/17 at 08:00 Insulin Glargine (Lantus) 47 units QHS SQ Last administered on 09/18/17at 21:31 ; Admin Dose 47 UNITS; Start 09/18/17 at 21:00 Insulin Human Lispro (HumaLOG) 17 units DAILY07 SQ Last administered on at 08:28; Admin Dose 17 UNITS; Start 09/19/17 at 07:00 Multi-Ingred Cream/Lotion/Oil/ Oint (Hydrocerin) 1 diane QHS TP ; Start 09/18/17 at 21:00 Loperamide HCl (Imodium) 2 mg PRN Q15MIN PRN PO DIARRHEA; Start 09/18/17 at 17: 45 Magnesium Hydroxide (Milk Of Magnesia) 2,400 mg PRN Q4HRS PRN PO CONSTIPATION; Start 09/18/17 at 17:45 Throat Lozenges (Cepacol Sore Throat Lozenge) 1 oscar PRN Q2HR PRN PO SORE THROAT /COUGH; Start 09/18/17 at 17:45 Metolazone (Zaroxolyn) 2.5 mg PRN DAILY PRN PO FLUID RETENTION; Start 09/19/17 at 09:00 Rivaroxaban (Xarelto) 20 mg DAILYWSUP PO Last administered on 09/18/17at 17:50; Admin Dose 20 MG; Start 09/18/17 at 17:45 Multivitamins/ Minerals (I-Olivia) 1 tab DAILY PO Last administered on 09/19/17at 08:17; Admin Dose 1 TAB; Start 09/19/17 at 09:00 Vancomycin HCl (Vanco Per Pharmacy) 1 each PRN DAILY PRN MC SEE COMMENTS Last administered on 09/19/17at 15:22; Admin Dose 1 EACH; Start 09/18/17 at 18:00 Vancomycin HCl 1.5 gm/Sodium Chloride 500 ml @ 250 mls/hr Q12H IV Last administered on 09/19/17at 15:33; Admin Dose 250 MLS/HR; Start 09/19/17 at 03:00 Vancomycin HCl (Vancomycin Trough Level) 1 each 1X ONCE MC Last administered on 09/19/17at 14:30; Admin Dose 1 EACH; Start 09/19/17 at 14:30; Stop 09/19/17 at 14:32; Status DC Vancomycin HCl (Vanco Per Pharmacy) 1 each PRN DAILY PRN MC SEE COMMENTS; Start 09/18/17 at 19:30; Status UNV Piperacillin Sod/ Tazobactam Sod (Zosyn Per Pharmacy) 1 each PRN DAILY PRN MC SEE COMMENTS; Start 09/18/17 at 19:30 Piperacillin Sod/ Tazobactam Sod 3.375 gm/Sodium Chloride 50 ml @ 100 mls/hr Q6H IV Last administered on 09/19/17at 13:53; Admin Dose 100 MLS/HR; Start 09/18 at 20:00 Vancomycin HCl (Vancomycin Trough Level) 1 each 1X ONCE MC ; Start 09/23/17 at 14:30; Stop 09/23/17 at 14:31 Active Scripts Active Reported Pro-Stat Liquid (Amino Acids/Protein Hydrolys) 30 Ml Liquid 30 Ml PO DAILY Refresh Optive Eye Drops (Carboxymethylcellulos/Glycerin) 15 Ml Drops 1 Drop EACHEYE HS Align (Bifidobacterium Infantis) 4 Mg Capsule 4 Mg PO DAILY [Xeroform Gauze] 1 Diane TP DAILY LAST DOSE GIVEN: DATE: TIME: NEXT DOSE DUE: DATE: TIME: Milk Of Magnesia (Magnesium Hydroxide) 2,400 Mg/10 Ml Oral.susp 2,400 Mg PO PRN Q4-6HRS PRN LAST DOSE GIVEN: DATE: TIME: NEXT DOSE DUE: DATE: TIME: [place] (Menthol) 5.8 Mg Lozenge 5.8 Mg MT PRN LAST DOSE GIVEN: DATE: TIME: NEXT DOSE DUE: DATE: TIME: Colace (Docusate Sodium) 100 Mg Capsule 100 Mg PO DAILY PRN LAST DOSE GIVEN: DATE: TIME: NEXT DOSE DUE: DATE: TIME: Humalog (Insulin Lispro) 100 Unit/1 Ml Vial 17 Unit SQ DAILY07 LAST DOSE GIVEN: DATE: TIME: NEXT DOSE DUE: DATE: TIME: Aromasin (Exemestane) 25 Mg Tablet 25 Mg PO DAILY LAST DOSE GIVEN: DATE: TIME: NEXT DOSE DUE: DATE: TIME: Levemir (Insulin Detemir) 100 Unit/1 Ml Vial 42 Unit SQ DAILY08 LAST DOSE GIVEN: DATE: TIME: NEXT DOSE DUE: DATE: TIME: Eucerin Original Lotion (Lanolin/Mineral Oil) 250 Ml Lotion 1 Diane TP QHS LAST DOSE GIVEN: DATE: TIME: NEXT DOSE DUE: DATE: TIME: Preservision Areds Softgel (Vit A/Vit C/Vit E/Zinc/Copper) 1 Each Capsule 1 Cap PO DAILY LAST DOSE GIVEN: DATE: TIME: NEXT DOSE DUE: DATE: TIME: Lipitor (Atorvastatin Calcium) 20 Mg Tablet 40 Mg PO HS LAST DOSE GIVEN: DATE: TIME: NEXT DOSE DUE: DATE: TIME: Tinactin (Tolnaftate) 30 Gm Cream..g. 30 Gm TP DAILY PRN LAST DOSE GIVEN: DATE: TIME: NEXT DOSE DUE: DATE: TIME: Imodium A-D (Loperamide Hcl) 1 Mg/7.5 Ml Liquid 2 Mg PO PRN PRN LAST DOSE GIVEN: DATE: TIME: NEXT DOSE DUE: DATE: TIME: Potassium Chloride 20 Meq Tab.er.prt 40 Meq PO BID LAST DOSE GIVEN: DATE: TIME: NEXT DOSE DUE: DATE: TIME: Hydrocodone-Apap 5-325 (Hydrocodone Bit/Acetaminophen) 1 Each Tablet 1 Tab PO BID PRN LAST DOSE GIVEN: DATE: TIME: NEXT DOSE DUE: DATE: TIME: Humalog (Insulin Lispro) 100 Unit/1 Ml Insuln.pen 21 Unit SQ BIDACLD LAST DOSE GIVEN: DATE: TIME: NEXT DOSE DUE: DATE: TIME: Metolazone 2.5 Mg Tablet 2.5 Mg PO PRN PRN LAST DOSE GIVEN: DATE: TIME: NEXT DOSE DUE: DATE: TIME: Take as needed for fluid retention. Give if wt increased of 3 lbs/24hr or 7 lbs/7days Aspir 81 (Aspirin) 81 Mg Tablet.dr 81 Mg PO HS LAST DOSE GIVEN: DATE: TIME: NEXT DOSE DUE: DATE: TIME: Pamidronate Disodium 30 Mg Vial 30 Mg IV Q4WK LAST DOSE GIVEN: DATE: TIME: NEXT DOSE DUE: DATE: TIME: Xarelto (Rivaroxaban) 20 Mg Tablet 20 Mg PO DAILYWSUP LAST DOSE GIVEN: DATE: TIME: NEXT DOSE DUE: DATE: TIME: Furosemide 40 Mg Tablet 40 Mg PO DAILY LAST DOSE GIVEN: DATE: TIME: NEXT DOSE DUE: DATE: TIME: Colace (Docusate Sodium) 100 Mg Capsule 200 Mg PO DAILY LAST DOSE GIVEN: DATE: TIME: NEXT DOSE DUE: DATE: TIME: Levemir (Insulin Detemir) 100 Unit/1 Ml Vial 47 Unit SQ HS LAST DOSE GIVEN: DATE: TIME: NEXT DOSE DUE: DATE: TIME: Exam Vital Signs Vital Signs Date Time Temp Pulse Resp B/P (MAP) Pulse Ox O2 Delivery O2 Flow Rate FiO2 09/19/17 10:41 98.6 75 20 108/58 (75) 94 Room Air General Appearance: Alert, Oriented X3, No acute distress HEENT: Atraumatic, Other (lips are dry mildly dry oral mucosa airway is patent) Respiratory: Clear to auscultation, Normal air movement Heart: Regular rate (2/6 systolic ejection murmur) Abdominal: Normal bowel sounds, Soft, No tenderness Extremities: Normal pulses, Other (2+ pitting lower extremity edema bilaterally , there is erythema and induration involving the distal half of the right lower leg extending to the proximal third of the right foot, a 1.5 cm scabbed diabetic foot ulcer noted on the plantar surface of the right first metatarsal head there is no discharge. There is similar erythema and induration involving the left lower leg not nearly as extensive primarily localized to the distal third of the left lower leg. No skin breaks discharge or ulcerations noted at the left lower extremity.) Neuro: Normal speech, Cranial nerves 3-12 NL Assessment/Plan Assessment/Plan Sepsis Bilateral lower extremity cellulitis Chronic nonhealing right diabetic foot ulcer Hypokalemia Continue IV vancomycin and Zosyn Continue IV hydration and electrolyte management PICC line in anticipation of discharge home tomorrow Follow-up on blood culture final results tomorrow COURSE Allergies Coded Allergies Type Severity Reaction Last Updated Verified ibuprofen Allergy Intermediate 09/19/17 Yes Laboratory Tests Test 09/18/17 17:14 09/18/17 18:13 09/18/17 20:50 09/19/17 05:44 Glucose (Fingerstick) 210 mg/dL (70-99) 258 mg/dL (70-99) Nasal Screen MRSA (PCR) Negative (Negative) White Blood Count 8.1 x10^3/uL (4.0-11.0) Red Blood Count 3.60 x10^6/uL (3.50-5.40) Hemoglobin 12.5 g/dL (12.0-15.5) Hematocrit 36.7 % (36.0-47.0) Mean Corpuscular Volume 102 fL (79-100) Mean Corpuscular Hemoglobin 35 pg (25-35) Mean Corpuscular Hemoglobin Concent 34 g/dL (31-37) Red Cell Distribution Width 17.1 % (11.5-14.5) Platelet Count 118 x10^3/uL (140-400) Sodium Level 141 mmol/L (136-145) Potassium Level 3.8 mmol/L (3.5-5.1) Chloride Level 105 mmol/L (98-107) Carbon Dioxide Level 28 mmol/L (21-32) Anion Gap 8 (6-14) Blood Urea Nitrogen 16 mg/dL (7-20) Creatinine 0.9 mg/dL (0.6-1.0) Estimated GFR (Cockcroft-Gault) 60.7 BUN/Creatinine Ratio 18 (6-20) Glucose Level 130 mg/dL (70-99) Calcium Level 9.0 mg/dL (8.5-10.1) Total Bilirubin 0.5 mg/dL (0.2-1.0) Aspartate Amino Transf (AST/SGOT) 25 U/L (15-37) Alanine Aminotransferase (ALT/SGPT) 29 U/L (14-59) Alkaline Phosphatase 68 U/L (46-116) Total Protein 6.5 g/dL (6.4-8.2) Albumin 2.7 g/dL (3.4-5.0) Albumin/Globulin Ratio 0.7 (1.0-1.7) Test 09/19/17 07:19 09/19/17 11:32 09/19/17 14:26 Glucose (Fingerstick) 131 mg/dL (70-99) 153 mg/dL (70-99) Vancomycin Level Trough 17.4 mcg/mL (10.0-20.0) Vancomycin Last Dose Date 09/19/17 Vancomycin Last Dose Time 0300 Current Medications Medications (Trade) Dose Ordered Sig/Lamont Route PRN Reason Start Time Stop Time Status Last Admin Dose Admin Atorvastatin Calcium (Lipitor) 40 mg HS PO 09/18/17 21:00 09/18/17 21:16 40 MG Insulin Human Lispro (HumaLOG) 21 units BIDACLD SQ 09/18/17 16:30 09/19/17 12:12 21 UNITS Potassium Chloride (Klor-Con) 40 meq BID PO 09/18/17 21:00 09/19/17 08:18 40 MEQ Tolnaftate (Tinactin) 1 diane PRN DAILY PRN TP Antifungal 09/18/17 17:00 Non-Formulary Medication (Amino Acids/ Protein Hydrolys (Pro-Stat Liquid)) 30 ml DAILY PO 09/19/17 09:00 UNV Aspirin (Aspirin Enteric Coated) 81 mg QHS PO 09/18/17 21:00 09/18/17 21:16 81 MG Lactobacillus Rhamnosus (Culturelle) 1 cap BID PO 09/18/17 21:00 09/19/17 08:17 1 CAP Artificial Tears (Refresh Classic) 1 drop QHS OU 09/18/17 21:00 Docusate Sodium (Colace) 100 mg PRN DAILY PRN PO CONSTIPATION 09/18/17 17:45 Docusate Sodium (Colace) 200 mg DAILY PO 09/19/17 09:00 09/19/17 08:17 200 MG Furosemide (Lasix) 40 mg DAILY PO 09/19/17 09:00 09/19/17 08:18 40 MG Acetaminophen/ Hydrocodone Bitart (Lortab 5/325) 1 tab PRN BID PRN PO PAIN 09/18/17 17:45 Insulin Glargine (Lantus) 42 units DAILY08 SQ 09/19/17 08:00 09/19/17 08:29 42 UNITS Insulin Glargine (Lantus) 47 units QHS SQ 09/18/17 21:00 09/18/17 21:31 47 UNITS Insulin Human Lispro (HumaLOG) 17 units DAILY07 SQ 09/19/17 07:00 09/19/17 08:28 17 UNITS Multi-Ingred Cream/Lotion/Oil/ Oint (Hydrocerin) 1 diane QHS TP 09/18/17 21:00 Loperamide HCl (Imodium) 2 mg PRN Q15MIN PRN PO DIARRHEA 09/18/17 17:45 Magnesium Hydroxide (Milk Of Magnesia) 2,400 mg PRN Q4HRS PRN PO CONSTIPATION 09/18/17 17:45 Throat Lozenges (Cepacol Sore Throat Lozenge) 1 oscar PRN Q2HR PRN PO SORE THROAT/COUGH 09/18/17 17:45 Metolazone (Zaroxolyn) 2.5 mg PRN DAILY PRN PO FLUID RETENTION 09/19/17 09:00 Rivaroxaban (Xarelto) 20 mg DAILYWSUP PO 09/18/17 17:45 09/18/17 17:50 20 MG Multivitamins/ Minerals (I-Olivia) 1 tab DAILY PO 09/19/17 09:00 09/19/17 08:17 1 TAB Vancomycin HCl (Vanco Per Pharmacy) 1 each PRN DAILY PRN MC SEE COMMENTS 09/18/17 18:00 09/19/17 15:22 1 EACH Vancomycin HCl 1.5 gm/Sodium Chloride 500 ml @ 250 mls/hr Q12H IV 09/19/17 03:00 09/19/17 15:33 250 MLS/HR Vancomycin HCl (Vancomycin Trough Level) 1 each 1X ONCE MC 09/19/17 14:30 09/19/17 14:32 DC 09/19/17 14:30 1 EACH Vancomycin HCl (Vanco Per Pharmacy) 1 each PRN DAILY PRN MC SEE COMMENTS 09/18/17 19:30 UNV Piperacillin Sod/ Tazobactam Sod (Zosyn Per Pharmacy) 1 each PRN DAILY PRN MC SEE COMMENTS 09/18/17 19:30 Piperacillin Sod/ Tazobactam Sod 3.375 gm/Sodium Chloride 50 ml @ 100 mls/hr Q6H IV 09/18/17 20:00 09/19/17 13:53 100 MLS/HR Vancomycin HCl (Vancomycin Trough Level) 1 each 1X ONCE MC 09/23/17 14:30 09/23/17 14:31 I & O 09/19/17 00:00 Intake Total 2060 ml Output Total 800 ml Balance 1260 ml Orders Procedure Category Date Status Time Admit Orders ADT 09/18/17 Transmitted Nursing Wound Care PABLO 09/18/17 In Process 16:35 Float Heels PABLO 09/18/17 In Process 16:35 Hemogram LAB 09/19/17 Complete 05:00 Comprehensive LAB 09/19/17 Complete Metabolic Panel 05:00 Atorvastatin Calcium PHA 09/18/17 In Process (Lipitor) 21:00 Potassium Chloride PHA 09/18/17 In Process Tab (Klor-Con) 21:00 Tolnaftate 1% Topical PHA 09/18/17 In Process Cream (Tinactin) 17:00 Aspirin Enteric PHA 09/18/17 In Process Coated (Aspirin 21:00 Polyvinyl PHA 09/18/17 In Process Alcohol/Povidone/Pf 21:00 Docusate Sodium PHA 09/18/17 In Process (Colace) 17:45 Docusate Sodium PHA 09/19/17 In Process (Colace) 09:00 Furosemide Tablet PHA 09/19/17 In Process (Lasix) 09:00 Hydrocodone/Apap PHA 09/18/17 In Process 5/325mg (Lortab 5/325) 17:45 Insulin Glargine PHA 09/19/17 In Process (Lantus) 08:00 Insulin Glargine PHA 09/18/17 In Process (Lantus) 21:00 Insulin Lispro PHA 09/19/17 In Process (Humalog) 07:00 Mineral PHA 09/18/17 In Process Oil/Petrolatum 21:00 Loperamide (Imodium) PHA 09/18/17 In Process 17:45 Magnesium Hydroxide PHA 09/18/17 In Process (Milk Of Magnesia) 17:45 Benzocaine/Menthol PHA 09/18/17 In Process Loznge 18's (Cepacol 17:45 Rivaroxaban (Xarelto) PHA 09/18/17 In Process 17:45 Multivitamin I-Olivia PHA 09/19/17 In Process Tablet. (I-Olivia) 09:00 High Risk Dc CONS 09/18/17 Transmitted Readmission 17:22 Insulin Lispro PHA 09/18/17 In Process (Humalog) 16:30 Lactobacillus PHA 09/18/17 In Process Rhamnosus Gg 21:00 Metolazone (Zaroxolyn) PHA 09/19/17 In Process 09:00 Code Status CODE 09/18/17 Transmitted 17:47 Vancomycin Per PHA 09/18/17 In Process Pharmacy (Vanco Per 18:00 Vancomycin PHA 09/19/17 In Process (Vancomycin) 03:00 Vancomycin Trough PHA 09/19/17 Complete Level (Vancomycin Trou 14:30 Vancomycin, Trough LAB 09/19/17 Complete 14:30 Pip/Tazo Per Pharmacy PHA 09/18/17 In Process (Zosyn Per Pharmac 19:30 Piperacillin/Tazobactam PHA 09/18/17 In Process (Zosyn) 20:00 Vancomycin, Trough LAB 09/23/17 Verified 14:30 Vancomycin Trough PHA 09/23/17 In Process Level (Vancomycin Trou 14:30 Picc Line Insertion PABLO 09/19/17 In Process 16:24 Vital Signs Date Time Temp Pulse Resp B/P (MAP) Pulse Ox O2 Delivery O2 Flow Rate FiO2 09/19/17 10:41 98.6 75 20 108/58 (75) 94 Room Air DAGO SHETH DO Sep 19, 2017 16:37
[2017-09-19] MEDS ORDERED: BACITRACIN TOPICAL OINT 28GM TUBE. TP PRN (17:00)
[2017-09-19] MEDS: RIVAROXABAN 10 MG TABLET. PO SCH (17:15)
[2017-09-19 19:34] VITALS: BP 120/69
[2017-09-19] MEDS: POLYVINYL ALCOHOL/POVIDONE/PF OPHTH SOLUTION DROPERETTE. OU SCH (20:32)
[2017-09-19] MEDS: ATORVASTATIN CALCIUM 20 MG TABLET PO SCH (20:33)
[2017-09-19] MEDS: MINERAL OIL/PETROLATUM TOPICAL CREAM 113GM JAR. TP SCH (20:50)
[2017-09-19] MEDS: ASPIRIN ENTERIC COATED 81 MG TABLET.DR. PO SCH (20:51)
[2017-09-19 22:30] VITALS: BP 124/71
[2017-09-20] MEDS: PIPERACILLIN/TAZOBACTAM 3.375 GM in IV NORMAL SALINE 50ML 50 ML IV SCH ×3 (02:13→14:02)
[2017-09-20] MEDS: VANCOMYCIN 1.5 GM in IV NORMAL SALINE 500ML 500 ML IV SCH ×2 (04:11→14:02)
[2017-09-20 06:00] LABS: BASO % 1 % (0-3); EOS # 0.1 x10^3/uL (0.0-0.7); EOS % 2 % (0-3); HEMATOCRIT 37.8 % (36.0-47.0); HEMOGLOBIN 12.7 g/dL (12.0-15.5); LYMPH # 1.3 x10^3/uL (1.0-4.8); LYMPH % 17 % (24-48); MEAN CORPUSCULAR HEMOGLOBIN 34 pg (25-35); MEAN CORPUSCULAR HGB CONC 34 g/dL (31-37); MEAN CORPUSCULAR VOLUME 102 fL (79-100); MONO # 1.2 x10^3/uL (0.0-1.1); MONO % 16 % (0-9); NEUT # 4.8 x10^3uL (1.8-7.7); NEUT % 65 % (31-73); PLATELET COUNT 126 x10^3/uL (140-400); WHITE BLOOD COUNT 7.5 x10^3/uL (4.0-11.0)
[2017-09-20 06:03] LABS: CALCIUM 9.1 mg/dL (8.5-10.1); CREATININE 0.8 mg/dL (0.6-1.0); GFR 69.6; POTASSIUM 3.5 mmol/L (3.5-5.1)
[2017-09-20 06:32] VITALS: BP 148/70
[2017-09-20] MEDS: LACTOBACILLUS RHAMNOSUS GG 1 CAPSULE. PO SCH (08:49)
[2017-09-20] MEDS: DOCUSATE SODIUM 100 MG CAPSULE PO SCH (08:49)
[2017-09-20] MEDS: MULTIVITAMIN I-VITE TABLET. PO SCH (08:49)
[2017-09-20] MEDS: FUROSEMIDE 40 MG TABLET PO SCH (08:49)
[2017-09-20] MEDS: POTASSIUM CHLORIDE 20 MEQ TABLET.ER. PO SCH (08:49)
[2017-09-20] MEDS: INSULIN LISPRO 300 UNITS/3 ML INSULN.PEN. SQ SCH ×2 (09:00→12:10)
[2017-09-20] MEDS: INSULIN GLARGINE 300 UNITS/3 ML INSULN.PEN. SQ SCH (09:02)
[2017-09-20 11:20] VITALS: BP 130/68
--- NOTE | 2017-09-20 11:47 | NUR ---
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
--- NOTE | 2017-09-20 13:23 | NUR ---
Procedure: Following complete explanation of the PICC procedure including the indications, risks, and potential complications, informed consent was obtained. The possibility for infection was discussed along with signs, symptoms, and prevention. All the questions were answered. IV Device Protocol was used. Written and verbal patient education was provided. Hand hygiene performed. Standardized central line checklist was utilized. The patient was placed in the supine position, the arm was prepped with chlorhexidine and patient draped with maximum sterile barrier. 3 mL 1% lidocaine was infiltrated into the skin to provide local anesthesia. A thorough assessment of LEFT upper extremity completed. Using real-time ultrasound guidance and standardized micro puncture set, the bacilic vein was punctured and a peel away sheath was placed using the modified Seldinger technique. A tip location device was used to ensure adequate catheter placement. The catheter was secured using a securement device and an antimicrobial patch was applied directly on the insertion site followed by a transparent dressing. All ports withdraw blood and flush without resistance. Patient tolerated the procedure without apparent complication(s). Single Lumen Power PICC placement successful and uncomplicated. Placement verified by EKG tip confirmation system green salomón and green p waves. Complications: Minor bleeding est blood loss 50 cc Rowan James EMR TRAINER CMSRN [id number]
--- NOTE | 2017-09-20 13:43 | PDOC3 ---
Discharge Summary Visit Information Date of Admission: Sep 18, 2017 Date of Discharge: Sep 20, 2017 Admitting Diagnosis: sepsis, recurrent leg cellulitis, diabetic foot ulcer Final Diagnosis Problems Medical Problems: (1) Cellulitis of leg, right Status: Acute (2) Fever Status: Acute (3) Hypokalemia Status: Acute (4) Sepsis Status: Acute Brief Hospital Course Allergies Allergies Coded Allergies Type Severity Reaction Last Updated Verified ibuprofen Allergy Intermediate 09/19/17 Yes Vital Signs Vital Signs Date Time Temp Pulse Resp B/P (MAP) Pulse Ox O2 Delivery O2 Flow Rate FiO2 09/20/17 11:20 98.1 64 20 130/68 (88) 99 Room Air Lab Results Laboratory Tests Test 09/18/17 16:00 09/18/17 17:14 09/18/17 18:13 09/18/17 20:50 Lactic Acid Level 2.3 mmol/L (0.4-2.0) Glucose (Fingerstick) 210 mg/dL (70-99) 258 mg/dL (70-99) Nasal Screen MRSA (PCR) Negative (Negative) Test 09/19/17 05:44 09/19/17 07:19 09/19/17 11:32 09/19/17 14:26 White Blood Count 8.1 x10^3/uL (4.0-11.0) Red Blood Count 3.60 x10^6/uL (3.50-5.40) Hemoglobin 12.5 g/dL (12.0-15.5) Hematocrit 36.7 % (36.0-47.0) Mean Corpuscular Volume 102 fL (79-100) Mean Corpuscular Hemoglobin 35 pg (25-35) Mean Corpuscular Hemoglobin Concent 34 g/dL (31-37) Red Cell Distribution Width 17.1 % (11.5-14.5) Platelet Count 118 x10^3/uL (140-400) Sodium Level 141 mmol/L (136-145) Potassium Level 3.8 mmol/L (3.5-5.1) Chloride Level 105 mmol/L (98-107) Carbon Dioxide Level 28 mmol/L (21-32) Anion Gap 8 (6-14) Blood Urea Nitrogen 16 mg/dL (7-20) Creatinine 0.9 mg/dL (0.6-1.0) Estimated GFR (Cockcroft-Gault) 60.7 BUN/Creatinine Ratio 18 (6-20) Glucose Level 130 mg/dL (70-99) Calcium Level 9.0 mg/dL (8.5-10.1) Total Bilirubin 0.5 mg/dL (0.2-1.0) Aspartate Amino Transf (AST/SGOT) 25 U/L (15-37) Alanine Aminotransferase (ALT/SGPT) 29 U/L (14-59) Alkaline Phosphatase 68 U/L (46-116) Total Protein 6.5 g/dL (6.4-8.2) Albumin 2.7 g/dL (3.4-5.0) Albumin/Globulin Ratio 0.7 (1.0-1.7) Glucose (Fingerstick) 131 mg/dL (70-99) 153 mg/dL (70-99) Vancomycin Level Trough 17.4 mcg/mL (10.0-20.0) Vancomycin Last Dose Date 09/19/17 Vancomycin Last Dose Time 0300 Test 09/19/17 16:44 09/19/17 20:20 09/20/17 05:40 09/20/17 07:51 Glucose (Fingerstick) 172 mg/dL (70-99) 198 mg/dL (70-99) 66 mg/dL (70-99) White Blood Count 7.5 x10^3/uL (4.0-11.0) Red Blood Count 3.70 x10^6/uL (3.50-5.40) Hemoglobin 12.7 g/dL (12.0-15.5) Hematocrit 37.8 % (36.0-47.0) Mean Corpuscular Volume 102 fL (79-100) Mean Corpuscular Hemoglobin 34 pg (25-35) Mean Corpuscular Hemoglobin Concent 34 g/dL (31-37) Red Cell Distribution Width 17.0 % (11.5-14.5) Platelet Count 126 x10^3/uL (140-400) Neutrophils (%) (Auto) 65 % (31-73) Lymphocytes (%) (Auto) 17 % (24-48) Monocytes (%) (Auto) 16 % (0-9) Eosinophils (%) (Auto) 2 % (0-3) Basophils (%) (Auto) 1 % (0-3) Neutrophils # (Auto) 4.8 x10^3uL (1.8-7.7) Lymphocytes # (Auto) 1.3 x10^3/uL (1.0-4.8) Monocytes # (Auto) 1.2 x10^3/uL (0.0-1.1) Eosinophils # (Auto) 0.1 x10^3/uL (0.0-0.7) Basophils # (Auto) 0.0 x10^3/uL (0.0-0.2) Sodium Level 143 mmol/L (136-145) Potassium Level 3.5 mmol/L (3.5-5.1) Chloride Level 106 mmol/L (98-107) Carbon Dioxide Level 28 mmol/L (21-32) Anion Gap 9 (6-14) Blood Urea Nitrogen 13 mg/dL (7-20) Creatinine 0.8 mg/dL (0.6-1.0) Estimated GFR (Cockcroft-Gault) 69.6 Glucose Level 66 mg/dL (70-99) Calcium Level 9.1 mg/dL (8.5-10.1) Test 09/20/17 11:27 Glucose (Fingerstick) 123 mg/dL (70-99) Brief Hospital Course Ms. Guy is a 76 old female who presented to the emergency department complaining of several days overwhelming fatigue and weakness and one day recurrence of bilateral lower leg cellulitis symptoms. She is diabetic and has a nonhealing diabetic foot ulcer at the plantar surface of her right foot, she is also immunocompromised as she continues to [place] metastatic breast cancer first diagnosed in 1994. She arrived to the emergency department febrile and septic with a temperature of 100.8F. Her white blood cell count was elevated at 11.6, potassium was 3.2, BUN 23, creatinine 0.9, lactic acid 2.1. Dopplers of the right lower extremity revealed no DVT. Vancomycin intravenously as well as IV fluids were initiated and the patient was admitted to [address] [place] [address]. Through her stay and as a result of the treatment initiated her vital signs have normalized as have her labs. The redness and swelling in her lower legs continues to improve and she has no complaints. She is ins[facility] and a hospital like setting where she would like to continue her care. A PICC line has been inserted and case management is arranging medications. She will be discharged later today after her second blood culture comes back negative. Gen.: Sitting up and smiling in bed, joking about the uncomfortable mattress HEENT: Normocephalic atraumatic, lips are now moist advises the oral mucosa. Neck: Supple and nontender Cardiovascular: Soft 2/6 systolic ejection murmur regular rate Pulmonary: Lungs are clear bilaterally with good air movement Abdomen: Soft nontender no masses Extremities: The erythema at bilateral lower legs is receding, it primarily involves the left lower tibia on the left side and is now a faint pink, the right lower leg erythema has receded approximately 6 cm and the swelling is down there is persistent 2+ pitting lower extremity edema bilaterally. Diabetic foot ulcer at the right first metatarsal head is covered with sterile dressing. Discharge Information Condition at Discharge: Improved Follow Up: Weeks Disposition/Orders: D/C to Home Dischare Medications Current Medications Cefazolin Sodium 1 gm/Sodium Chloride 50 ml @ 100 mls/hr 1X ONCE IV Last administered on 09/18/17at 13:23; Start 09/18/17 at 12:30; Stop 09/18/17 at 12:59 ; Status DC Vancomycin HCl (Vanco Per Pharmacy) 1 each 1X ONCE MC Last administered on at 12:30; Start 09/18/17 at 12:30; Stop 09/18/17 at 12:49; Status DC Sodium Chloride 1,000 ml @ 1,000 mls/hr Q1H IV Last administered on 09/18/17at 13:24; Start 09/18/17 at 12:26; Stop 09/18/17 at 13:25; Status DC Acetaminophen (Tylenol) 650 mg 1X ONCE PO Last administered on 09/18/17at 13:25 ; Start 09/18/17 at 12:45; Stop 09/18/17 at 12:46; Status DC Vancomycin HCl 2 gm/Sodium Chloride 500 ml @ 250 mls/hr 1X ONCE IV Last administered on 09/18/17at 14:37; Start 09/18/17 at 13:00; Stop 09/18/17 at 14:59 ; Status DC Sodium Chloride 50 ml @ As Directed STK-MED ONCE .ROUTE ; Start 09/18/17 at 13: 09; Stop 09/18/17 at 13:11; Status DC Cefazolin Sodium (Ancef) 1 gm STK-MED ONCE .ROUTE ; Start 09/18/17 at 13:10; Stop 09/18/17 at 13:11; Status DC Potassium Chloride (Klor-Con) 40 meq 1X ONCE PO Last administered on at 14:47; Start 09/18/17 at 14:30; Stop 09/18/17 at 14:31; Status DC Atorvastatin Calcium (Lipitor) 40 mg HS PO Last administered on 09/19/17 20:33 ; Start 09/18/17 at 21:00 Insulin Human Lispro (HumaLOG) 21 units BIDACLD SQ Last administered on 12:10; Start 09/18/17 at 16:30 Potassium Chloride (Klor-Con) 40 meq BID PO Last administered on 09/20/17 08: 49; Start 09/18/17 at 21:00 Tolnaftate (Tinactin) 1 diane PRN DAILY PRN TP Antifungal; Start 09/18/17 at 17: 00 Non-Formulary Medication (Amino Acids/ Protein Hydrolys (Pro-Stat Liquid)) 30 ml DAILY PO ; Start 09/19/17 at 09:00; Status UNV Aspirin (Aspirin Enteric Coated) 81 mg QHS PO Last administered on 09/19/17 20 :51; Start 09/18/17 at 21:00 Lactobacillus Rhamnosus (Culturelle) 1 cap BID PO Last administered on 08:49; Start 09/18/17 at 21:00 Artificial Tears (Refresh Classic) 1 drop QHS OU Last administered on 20:32; Start 09/18/17 at 21:00 Docusate Sodium (Colace) 100 mg PRN DAILY PRN PO CONSTIPATION; Start 09/18/17 at 17:45 Docusate Sodium (Colace) 200 mg DAILY PO Last administered on 09/20/17 08:49; Start 09/19/17 at 09:00 Furosemide (Lasix) 40 mg DAILY PO Last administered on 09/20/17 08:49; Start 09/19/17 at 09:00 Acetaminophen/ Hydrocodone Bitart (Lortab 5/325) 1 tab PRN BID PRN PO PAIN; Start 09/18/17 at 17:45 Insulin Glargine (Lantus) 42 units DAILY08 SQ Last administered on 09/20/17at 09 :02; Start 09/19/17 at 08:00 Insulin Glargine (Lantus) 47 units QHS SQ Last administered on 09/19/17at 20:50 ; Start 09/18/17 at 21:00 Insulin Human Lispro (HumaLOG) 17 units DAILY07 SQ Last administered on at 09:00; Start 09/19/17 at 07:00 Multi-Ingred Cream/Lotion/Oil/ Oint (Hydrocerin) 1 diane QHS TP ; Start 09/18/17 at 21:00 Loperamide HCl (Imodium) 2 mg PRN Q15MIN PRN PO DIARRHEA; Start 09/18/17 at 17: 45 Magnesium Hydroxide (Milk Of Magnesia) 2,400 mg PRN Q4HRS PRN PO CONSTIPATION; Start 09/18/17 at 17:45 Throat Lozenges (Cepacol Sore Throat Lozenge) 1 oscar PRN Q2HR PRN PO SORE THROAT /COUGH; Start 09/18/17 at 17:45 Metolazone (Zaroxolyn) 2.5 mg PRN DAILY PRN PO FLUID RETENTION; Start 09/19/17 at 09:00 Rivaroxaban (Xarelto) 20 mg DAILYWSUP PO Last administered on 09/19/17at 17:15; Start 09/18/17 at 17:45 Multivitamins/ Minerals (I-Olivia) 1 tab DAILY PO Last administered on 09/20/17at 08:49; Start 09/19/17 at 09:00 Vancomycin HCl (Vanco Per Pharmacy) 1 each PRN DAILY PRN MC SEE COMMENTS Last administered on 09/19/17at 15:22; Start 09/18/17 at 18:00 Vancomycin HCl 1.5 gm/Sodium Chloride 500 ml @ 250 mls/hr Q12H IV Last administered on 09/20/17at 04:11; Start 09/19/17 at 03:00 Vancomycin HCl (Vancomycin Trough Level) 1 each 1X ONCE MC Last administered on 09/19/17at 14:30; Start 09/19/17 at 14:30; Stop 09/19/17 at 14:32; Status DC Vancomycin HCl (Vanco Per Pharmacy) 1 each PRN DAILY PRN MC SEE COMMENTS; Start 09/18/17 at 19:30; Status UNV Piperacillin Sod/ Tazobactam Sod (Zosyn Per Pharmacy) 1 each PRN DAILY PRN MC SEE COMMENTS; Start 09/18/17 at 19:30 Piperacillin Sod/ Tazobactam Sod 3.375 gm/Sodium Chloride 50 ml @ 100 mls/hr Q6H IV Last administered on 09/20/17at 08:53; Start 09/18/17 at 20:00 Vancomycin HCl (Vancomycin Trough Level) 1 each 1X ONCE MC ; Start 09/23/17 at 14:30; Stop 09/23/17 at 14:31 Bacitracin (Bacitracin Topical) 1 diane PRN BID PRN TP SKIN PROTECTION; Start at 17:00 Active Scripts Active Reported Pro-Stat Liquid (Amino Acids/Protein Hydrolys) 30 Ml Liquid 30 Ml PO DAILY Refresh Optive Eye Drops (Carboxymethylcellulos/Glycerin) 15 Ml Drops 1 Drop EACHEYE HS Align (Bifidobacterium Infantis) 4 Mg Capsule 4 Mg PO DAILY [Xeroform Gauze] 1 Diane TP DAILY LAST DOSE GIVEN: DATE: TIME: NEXT DOSE DUE: DATE: TIME: Milk Of Magnesia (Magnesium Hydroxide) 2,400 Mg/10 Ml Oral.susp 2,400 Mg PO PRN Q4-6HRS PRN LAST DOSE GIVEN: DATE: TIME: NEXT DOSE DUE: DATE: TIME: Melville (Menthol) 5.8 Mg Lozenge 5.8 Mg MT PRN LAST DOSE GIVEN: DATE: TIME: NEXT DOSE DUE: DATE: TIME: Colace (Docusate Sodium) 100 Mg Capsule 100 Mg PO DAILY PRN LAST DOSE GIVEN: DATE: TIME: NEXT DOSE DUE: DATE: TIME: Humalog (Insulin Lispro) 100 Unit/1 Ml Vial 17 Unit SQ DAILY07 LAST DOSE GIVEN: DATE: TIME: NEXT DOSE DUE: DATE: TIME: Aromasin (Exemestane) 25 Mg Tablet 25 Mg PO DAILY LAST DOSE GIVEN: DATE: TIME: NEXT DOSE DUE: DATE: TIME: Levemir (Insulin Detemir) 100 Unit/1 Ml Vial 42 Unit SQ DAILY08 LAST DOSE GIVEN: DATE: TIME: NEXT DOSE DUE: DATE: TIME: Eucerin Original Lotion (Lanolin/Mineral Oil) 250 Ml Lotion 1 Diane TP QHS LAST DOSE GIVEN: DATE: TIME: NEXT DOSE DUE: DATE: TIME: Preservision Areds Softgel (Vit A/Vit C/Vit E/Zinc/Copper) 1 Each Capsule 1 Cap PO DAILY LAST DOSE GIVEN: DATE: TIME: NEXT DOSE DUE: DATE: TIME: Lipitor (Atorvastatin Calcium) 20 Mg Tablet 40 Mg PO HS LAST DOSE GIVEN: DATE: TIME: NEXT DOSE DUE: DATE: TIME: Tinactin (Tolnaftate) 30 Gm Cream..g. 30 Gm TP DAILY PRN LAST DOSE GIVEN: DATE: TIME: NEXT DOSE DUE: DATE: TIME: Imodium A-D (Loperamide Hcl) 1 Mg/7.5 Ml Liquid 2 Mg PO PRN PRN LAST DOSE GIVEN: DATE: TIME: NEXT DOSE DUE: DATE: TIME: Potassium Chloride 20 Meq Tab.er.prt 40 Meq PO BID LAST DOSE GIVEN: DATE: TIME: NEXT DOSE DUE: DATE: TIME: Hydrocodone-Apap 5-325 (Hydrocodone Bit/Acetaminophen) 1 Each Tablet 1 Tab PO BID PRN LAST DOSE GIVEN: DATE: TIME: NEXT DOSE DUE: DATE: TIME: Humalog (Insulin Lispro) 100 Unit/1 Ml Insuln.pen 21 Unit SQ BIDACLD LAST DOSE GIVEN: DATE: TIME: NEXT DOSE DUE: DATE: TIME: Metolazone 2.5 Mg Tablet 2.5 Mg PO PRN PRN LAST DOSE GIVEN: DATE: TIME: NEXT DOSE DUE: DATE: TIME: Take as needed for fluid retention. Give if wt increased of 3 lbs/24hr or 7 lbs/7days Aspir 81 (Aspirin) 81 Mg Tablet.dr 81 Mg PO HS LAST DOSE GIVEN: DATE: TIME: NEXT DOSE DUE: DATE: TIME: Pamidronate Disodium 30 Mg Vial 30 Mg IV Q4WK LAST DOSE GIVEN: DATE: TIME: NEXT DOSE DUE: DATE: TIME: Xarelto (Rivaroxaban) 20 Mg Tablet 20 Mg PO DAILYWSUP LAST DOSE GIVEN: DATE: TIME: NEXT DOSE DUE: DATE: TIME: Furosemide 40 Mg Tablet 40 Mg PO DAILY LAST DOSE GIVEN: DATE: TIME: NEXT DOSE DUE: DATE: TIME: Colace (Docusate Sodium) 100 Mg Capsule 200 Mg PO DAILY LAST DOSE GIVEN: DATE: TIME: NEXT DOSE DUE: DATE: TIME: Levemir (Insulin Detemir) 100 Unit/1 Ml Vial 47 Unit SQ HS LAST DOSE GIVEN: DATE: TIME: NEXT DOSE DUE: DATE: TIME: DAGO SHETH DO Sep 20, 2017 13:43
[2017-09-20] MEDS ORDERED: PIPE2.255 IV (14:00)
[2017-09-20] MEDS ORDERED: VANC1VIA3 IV (14:00)
[2017-09-20 14:42] VITALS: BP 119/63
--- NOTE | 2017-09-20 15:38 | NUR ---
Report called to Ricky Casillas. Scripts faxed for IV antibiotics, PICC left in place. Pt aware of discharge and agrees with discharge plan.
== END 2017-09-20 18:45 | DRG 872 ==
LOC: ER 12:07 → 1 SOUTH 13:22
PROVIDERS: ADMIT Neuromusculoskeletal Medicine & OMM; ATTEND Neuromusculoskeletal Medicine & OMM
PROC: 05HY33Z Insertion of Infusion Device into Upper Vein, Percutaneous Approach (ICD-10-PCS; principal; 2017-09-20)
DX: A41.9 Sepsis, unspecified organism (principal); L03.116 Cellulitis of left lower limb; L03.115 Cellulitis of right lower limb; E11.40 Type 2 diabetes mellitus with diabetic neuropathy, unspecified; E78.00 Pure hypercholesterolemia, unspecified; E11.621 Type 2 diabetes mellitus with foot ulcer; E87.6 Hypokalemia; I10 Essential (primary) hypertension; L97.519 Non-pressure chronic ulcer of other part of right foot with unspecified severity; Z85.3 Personal history of malignant neoplasm of breast; Z86.718 Personal history of other venous thrombosis and embolism; Z88.8 Allergy status to other drugs, medicaments and biological substances
CPT/HCPCS: 36415; 36569; 80048; 80053; 80202; 82947; 83605; 85025; 85027; 87040; 87641; 93971; 96365; 96367; J0690; J1815; J2543; J3370; J7040; 99285-25; J7030

== ENCOUNTER 2017-11-26 14:29 | Inpatient (IN) | payer MEDICARE, OTHER ==
[~2017-11-26] VITALS: Ht 175.3 cm; Wt 103.0 kg
[~2017-11-26 14:29] MED LIST changes: +AMIN30LI PO; +BIFI4CAP PO; +CARB15DR3 EACHEYE; +PIPE2.255 IV; +VANC1VIA3 IV
[2017-11-26 15:32] LABS: BASO # 0.1 x10^3/uL (0.0-0.2); BASO % 1 % (0-3); EOS % 0 % (0-3); HEMATOCRIT 37.9 % (36.0-47.0); HEMOGLOBIN 12.9 g/dL (12.0-15.5); LYMPH # 1.2 x10^3/uL (1.0-4.8); LYMPH % 9 % (24-48); MEAN CORPUSCULAR HEMOGLOBIN 35 pg (25-35); MEAN CORPUSCULAR HGB CONC 34 g/dL (31-37); MEAN CORPUSCULAR VOLUME 102 fL (79-100); MONO # 1.2 x10^3/uL (0.0-1.1); MONO % 9 % (0-9); NEUT # 10.2 x10^3uL (1.8-7.7); NEUT % 80 % (31-73); PLATELET COUNT 155 x10^3/uL (140-400); RED BLOOD COUNT 3.72 x10^6/uL (3.50-5.40); RED CELL DISTRIBUTION WIDTH 18.4 % (11.5-14.5); WHITE BLOOD COUNT 12.7 x10^3/uL (4.0-11.0)
[2017-11-26 15:44] LABS: ALBUMIN/GLOBULIN RATIO 0.7 (1.0-1.7); CALCIUM 9.1 mg/dL (8.5-10.1); CREATININE 0.9 mg/dL (0.6-1.0); GFR 60.6; POTASSIUM 4.4 mmol/L (3.5-5.1); TOTAL BILIRUBIN 0.4 mg/dL (0.2-1.0); TOTAL PROTEIN 7.4 g/dL (6.4-8.2)
--- NOTE | 2017-11-26 15:44 | RAD ---
TIBIA FIBULA RIGHT (AP, lateral) INDICATION: RIGHT LEG CELLULITIS COMPARISON: Tib-fib radiographs dated 10/09/2012. FINDINGS: No acute fracture or malalignment. Advanced tricompartmental arthrosis. Moderate ankle arthrosis. Moderate midfoot arthrosis. Pes planus deformity. Calcaneal enthesophyte. Cortical irregularity of the mid femoral diaphysis may relate to remote injury. Well-corticated ossific density adjacent to the medial tibial plateau may relate to remote injury also well. Bony mineralization is normal for the patient's age. Vascular calcifications. Moderate ankle soft tissue swelling. Multiple small radiodensities are seen in the calf soft tissues, likely external to the patient. IMPRESSION: 1. No acute fracture or malalignment. 2. Cortical irregularity of the mid femoral diaphysis may relate to remote injury. Similar appearance can be seen with periosteal reaction. This would be an unusual location for osteomyelitis, but this is not excluded. Correlate for history of prior injury. Findings appear more advanced than 10/09/2012 radiographs. 3. Multiple small radiodensities are seen in the calf soft tissues, likely external to the patient, possibly related to topical medication. Correlate with physical exam. Phleboliths are another possibility. 4. Advanced tricompartmental arthrosis. Moderate ankle arthrosis. Moderate midfoot arthrosis. Pes planus deformity. 5. Moderate ankle soft tissue swelling. Electronically signed by: Luisito Mulligan MD (11/26/2017 3:41 PM) [facility]
[2017-11-26] MEDS ORDERED: VANCOMYCIN 1 GM in IV NORMAL SALINE 250ML 250 ML IV ONE (15:45)
--- NOTE | 2017-11-26 15:48 | PHYS DOC ---
Past History Past Medical History: Cancer, Diabetes, DVT, High Cholesterol, Hypertension, Other Past Surgical History: Cancer Surgery Smoking: Non-smoker Alcohol Use: None Drug Use: None Adult General Chief Complaint Chief Complaint: LOWER EXTREMITY SWELLING HPI HPI Patient is a 77 year old female with history of diabetes mellitus and chronic chronic lower extremity cellulitis who presents with complaining of fever and chills. Patient states she was finished a course of oral antibiotic given by [facility] wound clinic and since yesterday had temperature of up to 100.8 with chills and increasing of the redness and pain of right lower extremity pain with activation of her cellulitis. Patient denies shortness of breath, nausea and vomiting, new focal neuro deficit. Review of Systems Review of Systems Constitutional: Reports fever and chills Eyes: Denies change in visual acuity, redness, or eye pain [] HENT: Denies nasal congestion or sore throat [] Respiratory: Denies cough or shortness of breath [] Cardiovascular: No additional information not addressed in HPI [] GI: Denies abdominal pain, nausea, vomiting, bloody stools or diarrhea [] : Denies dysuria or hematuria [] Musculoskeletal: Denies back pain, reports joint pain [] Integument: Denies rash, reports or skin color change[] Neurologic: Denies headache, focal weakness or sensory changes [] Endocrine: Denies polyuria or polydipsia [] All other systems were reviewed and found to be within normal limits, except as documented in this note. Allergies Allergies Allergies Coded Allergies Type Severity Reaction Last Updated Verified ibuprofen Allergy Intermediate 09/19/17 Yes Physical Exam Physical Exam Constitutional: Well developed, well nourished, no acute distress, non-toxic appearance. [] HENT: Normocephalic, atraumatic Eyes: PERRLA, EOMI, conjunctiva normal, no discharge. [] Neck: Normal range of motion, no tenderness, supple, no stridor. [] Cardiovascular:Heart rate regular rhythm, no murmur [] Lungs & Thorax: Bilateral breath sounds clear to auscultation [] Abdomen: Bowel sounds normal, soft, no tenderness, no masses, no pulsatile masses. [] Skin: Warm, dry, no erythema, no rash. [] Back: No tenderness, no CVA tenderness. [] Extremities: Bilateral lower extremity or change of the skin, right lower extremity with erythema and edema and tenderness in medial leg with 1+ edema without neurovascular deficit, callus wound in bottom of right foot without sign of infection Neurologic: Alert and oriented X 3, normal motor function, normal sensory function, no focal deficits noted. [] Psychologic: Affect normal, judgement normal, mood normal. [] Current Patient Data Lab Results Laboratory Tests Test 11/26/17 15:19 White Blood Count 12.7 x10^3/uL (4.0-11.0) H Red Blood Count 3.72 x10^6/uL (3.50-5.40) Hemoglobin 12.9 g/dL (12.0-15.5) Hematocrit 37.9 % (36.0-47.0) Mean Corpuscular Volume 102 fL (79-100) H Mean Corpuscular Hemoglobin 35 pg (25-35) Mean Corpuscular Hemoglobin Concent 34 g/dL (31-37) Red Cell Distribution Width 18.4 % (11.5-14.5) H Platelet Count 155 x10^3/uL (140-400) Neutrophils (%) (Auto) 80 % (31-73) H Lymphocytes (%) (Auto) 9 % (24-48) L Monocytes (%) (Auto) 9 % (0-9) Eosinophils (%) (Auto) 0 % (0-3) Basophils (%) (Auto) 1 % (0-3) Neutrophils # (Auto) 10.2 x10^3uL (1.8-7.7) H Lymphocytes # (Auto) 1.2 x10^3/uL (1.0-4.8) Monocytes # (Auto) 1.2 x10^3/uL (0.0-1.1) H Eosinophils # (Auto) 0.0 x10^3/uL (0.0-0.7) Basophils # (Auto) 0.1 x10^3/uL (0.0-0.2) Prothrombin Time 11.7 SEC (9.4-11.4) H Prothrombin Time INR 1.2 (0.9-1.1) H EKG EKG [] Radiology/Procedures Radiology/Procedures [address] [address] IMAGING REPORT Signed PATIENT: MARTA RODRIGUEZ ACCOUNT: [id number] : 1940 LOCATION: ER AGE: 77 SEX: F EXAM STATUS: REG ER ORD. PHYSICIAN: KARMEN CHERY MD REASON: lower extremity cellulitis PROCEDURE: TIBIA FIBULA RIGHT TIBIA FIBULA RIGHT (AP, lateral) INDICATION: RIGHT LEG CELLULITIS COMPARISON: Tib-fib radiographs dated 10/09/2012. FINDINGS: No acute fracture or malalignment. Advanced tricompartmental arthrosis. Moderate ankle arthrosis. Moderate midfoot arthrosis. Pes planus deformity. Calcaneal enthesophyte. Cortical irregularity of the mid femoral diaphysis may relate to remote injury. Well-corticated ossific density adjacent to the medial tibial plateau may relate to remote injury also well. Bony mineralization is normal for the patient's age. Vascular calcifications. Moderate ankle soft tissue swelling. Multiple small radiodensities are seen in the calf soft tissues, likely external to the patient. IMPRESSION: 1. No acute fracture or malalignment. 2. Cortical irregularity of the mid femoral diaphysis may relate to remote injury. Similar appearance can be seen with periosteal reaction. This would be an unusual location for osteomyelitis, but this is not excluded. Correlate for history of prior injury. Findings appear more advanced than 10/09/2012 radiographs. 3. Multiple small radiodensities are seen in the calf soft tissues, likely external to the patient, possibly related to topical medication. Correlate with physical exam. Phleboliths are another possibility. 4. Advanced tricompartmental arthrosis. Moderate ankle arthrosis. Moderate midfoot arthrosis. Pes planus deformity. 5. Moderate ankle soft tissue swelling. Electronically signed by: Luisito Mulligan MD (11/26/2017 3:41 PM) [facility] DICTATED AND SIGNED BY: LUISITO MULLIGAN MD DATE: 11/26/17 1534 CC: KARMEN CHERY MD; CASS BAKER MD ~ Course & Med Decision Making Course & Med Decision Making Pertinent Labs and Imaging studies reviewed. (See chart for details) Evaluation of patient in ER showed 77-year-old female patient with right lower extremity cellulitis that getting worse since yesterday with fever and chills at home. Patient did not have fever in ER. Patient did not have neurovascular deficit in right lower extremity. Lactic acid was not elevated. Patient treated with Ancef and vancomycin. Dr. Finney accepted admission at 1543. Dragon Disclaimer Dragon Disclaimer This electronic medical record was generated, in whole or in part, using a voice recognition dictation system. Departure Departure: Impression: Primary Impression: Cellulitis of leg, right Additional Impressions: Peripheral neuropathy Diabetic foot ulcer Diabetes mellitus Disposition: 09 ADMITTED INPATIENT Admitting Physician: Constantino Finney (accepted admission at 1543) Condition: IMPROVED Referrals: CASS BAKER MD (PCP) Problem Qualifiers KARMEN CHERY MD Nov 26, 2017 15:48
[2017-11-26] MEDS ORDERED: VANCOMYCIN 2 GM in IV NORMAL SALINE 500ML 500 ML IV ONE (16:15)
[2017-11-26 16:38] VITALS: BP 121/62
[2017-11-26] MEDS ORDERED: ceFAZolin SODIUM 1 GM VIAL ONE (18:46)
[2017-11-26] MEDS ORDERED: IV NORMAL SALINE 50ML 50 ML ONE (18:46)
--- NOTE | 2017-11-26 19:30 | NUR ---
Initial Shift Assessment Pt is resting in bed, states she is not in pain. 22g in L hand, nothing infusing. Pt will contact [facility] to see if her walker can be sent; she uses a walker at [facility]. RLE leg bandages unwrapped to take pictures of BLE per wound protocol. Pt stated she had recently had a wound on the bottom of her R foot debrided; it had gauze on it but no bandage. A photo of this wound was also obtained and will be placed in the pt's chart. Will continue to monitor. Jody Piedra RN
[2017-11-26 19:59] VITALS: BP 122/64
[2017-11-26] MEDS ORDERED: METH-37 PO (20:26)
[2017-11-26] MEDS ORDERED: ONDA4TAB7 PO (20:26)
[2017-11-26] MEDS ORDERED: ACET500T68 PO (20:26)
[2017-11-26] MEDS ORDERED: LOPE2CAP88 PO ×2 (20:26)
[2017-11-26] MEDS ORDERED: CAPE500T PO (20:26)
--- NOTE | 2017-11-26 20:37 | NUR ---
The patient, MARTA RODRIGUEZ, 77 y/o, F admitted by DAVE CAMEJO MD, was given written information regarding hospital policies, unit procedures and contact persons. Patient admitted to room 115 from ED and arrived at approx. 1635 via EMS. Vital signs assessed and pt oriented to the room. Valuables were checked and left in room with patient.
--- NOTE | 2017-11-26 21:30 | NUR ---
Wound on R foot After obtaining pictures of BLE, Jody Piedra RN, rewrapped pt's RLE with gauze and Kerlix. There had not been a bandage on the wound on pt's R foot, which was approximated and not bleeding, so no gauze or Kerlix was applied. A transparent film bandage was applied to the wound, and pt's sock was placed back on foot. Pt went to at approx 2130 using walker with Jody Piedra as standby assist. Pt and Jody Piedra noticed small blood cid on the floor after pt had returned to bed and observed that the wound was bleeding through the bandage. The transparent film dressing had remained over the wound. Jody Piedra removed the transparent film and cleaned the area around the wound, then applied gauze pads and wrapped them in Kerlix. Pt's wound did not continue to bleed, and pedal pulses remain palpable, with toes warm. Will continue to monitor. Jody Piedra RN
--- NOTE | 2017-11-26 23:28 | NUR ---
Call to MD Reg, concerning home medications Jody Piedra RN, paged MD Reg, at 2145 to review home meds and discuss whether to restart them, as well as to discuss current orders for antibiotics as no new orders had been entered s/p pt's 1gm Cefazolin. After reviewing the home meds list, Reg stated to contact [facility] for the current administration record and restart those medications. Jody Piedra RN, contacted NANCY Abad, at [facility] at 1995 and went over all pt's current medications, administration times, and dosages. These were updated in [employer] as necessary and restarted per Reg's telephone order. Reg stated that pt should be continued on Cefazolin and Vancomycin per pharmacy. Jody Piedra contacted Parul Astorga, at [facility] at 0030 to relay this order. Vancomycin and Cefazolin were entered in pt's eMAR and are now available at regular intervals, per Reg's order. Will continue to monitor. Jody Piedra RN Addendum: 11/27/17 at 0141 by CARITO PIEDRA RN RN Clarification on times Jody Piedra RN, contacted Parul Astorga, at 0030 on [id number].
[2017-11-27] MEDS ORDERED: INSU100V13 SQ (00:07)
[2017-11-27] MEDS ORDERED: INSU100V SQ ×2 (00:07)
[2017-11-27] MEDS ORDERED: ONDANSETRON ODT 4 MG TAB.RAPDIS PO PRN (00:15)
[2017-11-27] MEDS ORDERED: ACETAMINOPHEN 500 MG TABLET PO PRN ×2 (00:15→00:55)
[2017-11-27] MEDS ORDERED: TOLNAFTATE 1% TOPICAL CREAM 15GM TUBE. TP PRN (00:15)
[2017-11-27 00:19] VITALS: BP 126/60
[2017-11-27] MEDS ORDERED: VANCOMYCIN PER PHARMACY MC PRN (00:30)
[2017-11-27] MEDS ORDERED: VANCOMYCIN 2 GM in IV NORMAL SALINE 500ML 500 ML IV ONE (01:00)
[2017-11-27] MEDS: ceFAZolin SODIUM 2 GM in IV DEXTROSE 5% 50 ML IV SCH ×3 (01:24→14:00)
--- NOTE | 2017-11-27 01:24 | NUR ---
Fever Pt's temperature at 0019 was 100.1. Pt did not have any fever medication available, so the room temperature was decreased from 80 degrees Farenheit to 72. When acetaminophen was available at approx 0110, Jody Piedra RN, rechecked pt's temperature. It was 99.7. Pt was given 1000mg of acetaminophen. Jody Piedra will continue to monitor temperatures. Jody Lockhart RN
[2017-11-27 06:00] VITALS: BP 121/66
[2017-11-27 06:59] LABS: BASO % 1 % (0-3); EOS # 0.1 x10^3/uL (0.0-0.7); EOS % 1 % (0-3); HEMATOCRIT 35.3 % (36.0-47.0); HEMOGLOBIN 12.1 g/dL (12.0-15.5); LYMPH # 1.3 x10^3/uL (1.0-4.8); LYMPH % 15 % (24-48); MEAN CORPUSCULAR HEMOGLOBIN 35 pg (25-35); MEAN CORPUSCULAR HGB CONC 34 g/dL (31-37); MEAN CORPUSCULAR VOLUME 102 fL (79-100); MONO % 11 % (0-9); NEUT # 6.6 x10^3uL (1.8-7.7); NEUT % 73 % (31-73); PLATELET COUNT 137 x10^3/uL (140-400); RED BLOOD COUNT 3.46 x10^6/uL (3.50-5.40); RED CELL DISTRIBUTION WIDTH 17.8 % (11.5-14.5)
[2017-11-27] MEDS ORDERED: INSULIN GLARGINE 300 UNITS/3 ML INSULN.PEN. SQ SCH ×2 (07:00→21:00)
[2017-11-27 07:19] LABS: CALCIUM 8.7 mg/dL (8.5-10.1); CREATININE 0.8 mg/dL (0.6-1.0); GFR 69.4
[2017-11-27] MEDS ORDERED: MINERAL OIL/PETROLATUM TOPICAL CREAM 113GM JAR. TP SCH (07:30)
--- NOTE | 2017-11-27 07:33 | NUR ---
Pharmacy Vancomycin Dosing Note S:Consulted to monitor and dose vancomycin started 11/26/17. O:MARTA RODRIGUEZ is a 77 year old F with Cellulitis . Height: 5 feet, 9 inches Weight: 102.084412 kg [place] Body Weight: 66.20 Adjusted Body Weight: 81.00 Dosing Weight: Actual Other Antibiotics: CEFAZOLIN LABS: Last BUN: 27 Last Creatinine: 0.9 Creatinine Clearance: 60 Last WBC: 9.0 Last Platelets: 137 Vancomycin Dosing: Loading Dose: 2000 mg x1 Dosing Weight: Actual Target Trough: 10-20 A: Initial dosing is based on height, actual weight, renal function, and indication. This patient actually received 2 loading doses of 2000mg, one at approx 1800 on 11/26 and one at approx 0200 on 11/27. The maintenance dosing and Vanco trough have been adjusted accordingly. P: 1. Vancomycin 1500 mg IV q12h beginning at 1800 on 11/27/17. 2. Follow up Trough level on 11/28/17 at 1730. 3. Pharmacy will continue to monitor, follow and adjust therapy as needed. ALCON RODRIGUEZ [facility] 11/27/17 0733 Signed: 11/27/17 at 0739 by ALCON HARRIS
[2017-11-27] MEDS ORDERED: POTASSIUM CHLORIDE 20 MEQ TABLET.ER. PO SCH (08:00)
[2017-11-27] MEDS ORDERED: INSULIN LISPRO 300 UNITS/3 ML INSULN.PEN. SQ SCH ×3 (08:00→12:00)
[2017-11-27] MEDS ORDERED: DOCUSATE SODIUM 100 MG CAPSULE PO SCH (09:00)
[2017-11-27] MEDS ORDERED: NON FORMULARY ITEM (Amino Acids/Protein Hydrolys (Pro-Stat Liquid) 30 ML) PO SCH (09:00)
[2017-11-27] MEDS ORDERED: FUROSEMIDE 40 MG TABLET PO SCH (09:00)
[2017-11-27] MEDS ORDERED: LACTOBACILLUS RHAMNOSUS GG 1 CAPSULE. PO SCH (09:00)
[2017-11-27] MEDS ORDERED: MULTIVITAMIN I-VITE TABLET. PO SCH (09:00)
[2017-11-27 11:04] VITALS: BP 112/66
--- NOTE | 2017-11-27 12:46 | NUR ---
Order Verified Yes Consent signed Yes Previous PICC placement Yes Past Medical/Surgical history and current diagnosis reviewed Yes Patient Medical /Surgical History Related to PICC line placement Diabetes Mastectomy with lymph resection right arm Special considerations for PICC line placement None PICC placement indication retirement antibiotic usage, currently on 2 antbx Name of PICC Nurse Susie Morejon RN
--- NOTE | 2017-11-27 12:48 | NUR ---
Procedure: Following complete explanation of the PICC procedure including the indications, risks, and potential complications, informed consent was obtained. The possibility for infection was discussed along with signs, symptoms, and prevention. All the patients questions were answered. IV Device Protocol was used. Written and verbal patient education was provided. Hand hygiene performed. Standardized central line checklist was utilized. The patient was placed in the supine position, the laft arm was prepped with chlorhexidine and patient draped with maximum sterile barrier. 1 mL 1% lidocaine was infiltrated into the skin to provide local anesthesia. A thorough assessment of the left upper extremity completed. Using real-time ultrasound guidance and standardized micro puncture set, the left basilic vein was punctured and a peel away sheath was placed using the modified Seldinger technique. A tip location device was used to ensure adequate catheter placement. The catheter was secured using a securement device and an antimicrobial patch was applied directly on the insertion site followed by a transparent dressing. All ports withdraw blood and flush without resistance. Patient tolerated the procedure without apparent complication. A dual Lumen Power PICC placement successful and uncomplicated. Placement verified by EKG tip confirmation system. Tip located in the ACJ per 3cg, green salomón and p wave confirmation. Complications: None
--- NOTE | 2017-11-27 14:05 | PDOC1 ---
History of Present Illness History of Present Illness Patient is a 77 year old female with history of metastatic breast cancer now in remission, diabetes mellitus, and chronic chronic lower extremity cellulitis who presents with complaining of fever and chills. She is well-known to me and has been admitted to this facility with similar symptoms. She did follow-up with infectious disease Dr. Pyle who reportedly declared there is likely no osteomyelitis component and that her continued treatments for cancer render her and immunocompromise state. Patient states she recently finished a course of oral antibiotic given by [facility] wound clinic and yesterday had sudden onset temperature of up to 100.8 degrees Fahrenheit with chills and increasing redness and pain of right lower extremity pain with activation of her cellulitis. Patient denied shortness of breath, nausea and vomiting, new focal neuro deficit. White blood cell count initially 12.7 and has improved to 9.0 with vancomycin and Ancef intravenously. Initial lactic acid 1.8 and albumin 3.0. I find the patient sitting up in bed in no apparent distress eagerly anticipating discharge back to [facility]. A PICC line is been placed and she has remained afebrile overnight. She reports that the pain and swelling has improved dramatically at her right leg and she notifies me that she will be going home today. 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 See HPI for pertinent positives and negative responses, other jacobson all other systems are negative, non pertinent or non contributory Constitutional: Fever, Chills Eyes: No: Blurry vision, Eye Pain ENT: No: Ear pain, Throat pain Respiratory: No: Cough, Shortness of breath, SOB with excertion Cardiovascular: No: Chest Pain, Palpitations, Edema Gastrointestinal: No: Nausea, Vomiting, Abdominal Pain Musculoskeletal: YES: Pain In: (right leg); No: Joint Pain, Joint Swelling SKIN: YES: Other (see history of present illness) Neurological: No: Confusion, Headaches Medications Current Medications Cefazolin Sodium 1 gm/Sodium Chloride 50 ml @ 100 mls/hr 1X ONCE IV Last administered on 11/26/17at 22:22; Start 11/26/17 at 16:15; Stop 11/26/17 at 17 :31; Status DC Vancomycin HCl 1 gm/Sodium Chloride 250 ml @ 250 mls/hr 1X ONCE IV ; Start at 15:45; Stop 11/26/17 at 16:44; Status UNV Vancomycin HCl 2 gm/Sodium Chloride 500 ml @ 250 mls/hr 1X ONCE IV Last administered on 11/26/17at 17:44; Start 11/26/17 at 16:15; Stop 11/26/17 at 18 :14; Status DC Sodium Chloride 50 ml @ As Directed STK-MED ONCE .ROUTE ; Start 11/26/17 at 18: 46; Stop 11/26/17 at 18:47; Status DC Cefazolin Sodium (Ancef) 1 gm STK-MED ONCE .ROUTE ; Start 11/26/17 at 18:46; Stop 11/26/17 at 18:47; Status DC Atorvastatin Calcium (Lipitor) 40 mg HS PO ; Start 11/27/17 at 21:00 Potassium Chloride (Klor-Con) 40 meq BIDWMEALS PO Last administered on at 08:09; Start 11/27/17 at 08:00 Tolnaftate (Tinactin) 30 diane DAILY PRN TP Antifungal; Start 11/27/17 at 00:15 Acetaminophen (Tylenol) 2 mg PRN TID PRN PO PAIN / TEMP; Start 11/27/17 at 00: 15; Stop 11/27/17 at 00:55; Status DC Non-Formulary Medication (Amino Acids/ Protein Hydrolys (Pro-Stat Liquid)) 30 ml DAILY PO ; Start 11/27/17 at 09:00; Status UNV Aspirin (Aspirin Enteric Coated) 81 mg HS PO ; Start 11/27/17 at 21:00 Lactobacillus Rhamnosus (Culturelle) 1 cap BID PO Last administered on at 08:09; Start 11/27/17 at 09:00 Artificial Tears (Artificial Tears) 1 drop QHS OU ; Start 11/27/17 at 21:00 Docusate Sodium (Colace) 200 mg DAILY PO Last administered on 11/27/17at 08:09 ; Start 11/27/17 at 09:00 Furosemide (Lasix) 40 mg DAILY PO Last administered on 11/27/17at 08:09; Start 11/27/17 at 09:00 Insulin Glargine (Lantus) 42 units DAILY07 SQ Last administered on 11/27/17at 08:19; Start 11/27/17 at 07:00 Insulin Glargine (Lantus) 65 units HS SQ ; Start 11/27/17 at 21:00 Insulin Human Lispro (HumaLOG) 17 units DAILYWBKFT SQ Last administered on at 08:19; Start 11/27/17 at 08:00 Insulin Human Lispro (HumaLOG) 24 units BID94 SQ ; Start 11/27/17 at 09:00; Status Cancel Multi-Ingred Cream/Lotion/Oil/ Oint (Hydrocerin) 1 diane QHS TP ; Start 11/27/17 at 07:30 Ondansetron HCl (Zofran Odt) 4 mg PRN Q6HRS PRN PO NAUSEA/VOMITING; Start at 00:15 Rivaroxaban (Xarelto) 20 mg DAILYWSUP PO ; Start 11/27/17 at 17:00 Multivitamins/ Minerals (I-Olivia) 1 tab DAILY PO Last administered on at 08:08; Start 11/27/17 at 09:00 Vancomycin HCl (Vanco Per Pharmacy) 1 each PRN DAILY PRN MC SEE COMMENTS Last administered on 11/27/17at 07:32; Start 11/27/17 at 00:30 Vancomycin HCl 2 gm/Sodium Chloride 500 ml @ 250 mls/hr 1X ONCE IV Last administered on 11/27/17at 02:29; Start 11/27/17 at 01:00; Stop 11/27/17 at 02 :59; Status DC Cefazolin Sodium 2 gm/Dextrose 50 ml @ 100 mls/hr Q8HRS IV Last administered on 11/27/17at 05:58; Start 11/27/17 at 01:00 Acetaminophen (Tylenol) 1,000 mg PRN TID PRN PO PAIN / TEMP Last administered on 11/27/17at 01:21; Start 11/27/17 at 00:55 Vancomycin HCl 1.5 gm/Sodium Chloride 500 ml @ 250 mls/hr Q12H IV ; Start at 18:00 Vancomycin HCl (Vancomycin Trough Level) 1 each 1X ONCE MC ; Start 11/28/17 at 17:30; Stop 11/28/17 at 17:31 Insulin Human Lispro (HumaLOG) 24 units BID@1200,1700 SQ Last administered on 11/27/17at 13:03; Start 11/27/17 at 12:00 Active Scripts Active Reported Levemir (Insulin Detemir) 100 Unit/1 Ml Vial 42 Unit SQ DAILY07 Humalog (Insulin Lispro) 100 Unit/1 Ml Vial 17 Unit SQ DAILYWBKFT Humalog (Insulin Lispro) 100 Unit/1 Ml Vial 24 Unit SQ BID94 Zofran (Ondansetron Hcl) 4 Mg Tablet 1 Tab PO Q6HRS PRN Acetaminophen 500 Mg Tablet 2 Tab PO PRN TID PRN Pro-Stat Liquid (Amino Acids/Protein Hydrolys) 30 Ml Liquid 30 Ml PO DAILY Refresh Optive Eye Drops (Carboxymethylcellulos/Glycerin) 15 Ml Drops 1 Drop EACHEYE HS Align (Bifidobacterium Infantis) 4 Mg Capsule 4 Mg PO DAILY Eucerin Original Lotion (Lanolin/Mineral Oil) 250 Ml Lotion 1 Diane TP QHS LAST DOSE GIVEN: DATE: TIME: NEXT DOSE DUE: DATE: TIME: Preservision Areds Softgel (Vit A/Vit C/Vit E/Zinc/Copper) 1 Each Capsule 1 Cap PO DAILY LAST DOSE GIVEN: DATE: TIME: NEXT DOSE DUE: DATE: TIME: Lipitor (Atorvastatin Calcium) 20 Mg Tablet 40 Mg PO HS LAST DOSE GIVEN: DATE: TIME: NEXT DOSE DUE: DATE: TIME: Tinactin (Tolnaftate) 30 Gm Cream..g. 30 Gm TP DAILY PRN LAST DOSE GIVEN: DATE: TIME: NEXT DOSE DUE: DATE: TIME: Potassium Chloride 20 Meq Tab.er.prt 40 Meq PO BID LAST DOSE GIVEN: DATE: TIME: NEXT DOSE DUE: DATE: TIME: Aspir 81 (Aspirin) 81 Mg Tablet.dr 81 Mg PO HS LAST DOSE GIVEN: DATE: TIME: NEXT DOSE DUE: DATE: TIME: Xarelto (Rivaroxaban) 20 Mg Tablet 20 Mg PO DAILYWSUP LAST DOSE GIVEN: DATE: TIME: NEXT DOSE DUE: DATE: TIME: Furosemide 40 Mg Tablet 40 Mg PO DAILY LAST DOSE GIVEN: DATE: TIME: NEXT DOSE DUE: DATE: TIME: Colace (Docusate Sodium) 100 Mg Capsule 200 Mg PO DAILY LAST DOSE GIVEN: DATE: TIME: NEXT DOSE DUE: DATE: TIME: Levemir (Insulin Detemir) 100 Unit/1 Ml Vial 65 Unit SQ HS LAST DOSE GIVEN: DATE: TIME: NEXT DOSE DUE: DATE: TIME: Exam Vital Signs Vital Signs Date Time Temp Pulse Resp B/P (MAP) Pulse Ox O2 Delivery O2 Flow Rate FiO2 11/27/17 11:04 98.1 67 18 112/66 (81) 95 Room Air General Appearance: Alert, Oriented X3, No acute distress HEENT: Atraumatic, PERRLA, EOMI, Mucous membr. moist/pink Respiratory: Clear to auscultation, Normal air movement Heart: Normal S1, Normal S2, No murmurs Abdominal: Soft, No tenderness Extremities: No clubbing, No cyanosis, Other (small approximately 5 cm diameter area of erythema and induration at the medial aspect of the right lower leg consistent with prior cellulitic symptoms and reportedly dramatically improved from emergency department presentation.) Neuro: Normal speech, Sensation intact, Cranial nerves 3-12 NL Psych/Mental Status: Mental status NL, Mood NL Assessment/Plan Assessment/Plan Acute exacerbation of chronic right lower extremity cellulitis History of metastatic breast cancer now in remission Immunocompromise status due to cancer therapy Mild protein calorie malnutrition albumin 3.0 At her insistence the patient will be discharged home to continue treatment in the medical unit at [facility]. She will continue intravenous Ancef and vancomycin and prescriptions are provided for [address] Hagan low to be consulted for vancomycin labs and dosing and to determine the length of treatment. Outpatient follow-up with infectious disease Dr. Pyle is also recommended. I discussed these matters with the patient in detail and she expressed agreement and understanding. COURSE Allergies Coded Allergies Type Severity Reaction Last Updated Verified ibuprofen Allergy Intermediate 09/19/17 Yes Laboratory Tests Test 11/26/17 15:19 11/26/17 17:40 11/26/17 21:37 11/27/17 06:20 White Blood Count 12.7 x10^3/uL (4.0-11.0) 9.0 x10^3/uL (4.0-11.0) Red Blood Count 3.72 x10^6/uL (3.50-5.40) 3.46 x10^6/uL (3.50-5.40) Hemoglobin 12.9 g/dL (12.0-15.5) 12.1 g/dL (12.0-15.5) Hematocrit 37.9 % (36.0-47.0) 35.3 % (36.0-47.0) Mean Corpuscular Volume 102 fL (79-100) 102 fL (79-100) Mean Corpuscular Hemoglobin 35 pg (25-35) 35 pg (25-35) Mean Corpuscular Hemoglobin Concent 34 g/dL (31-37) 34 g/dL (31-37) Red Cell Distribution Width 18.4 % (11.5-14.5) 17.8 % (11.5-14.5) Platelet Count 155 x10^3/uL (140-400) 137 x10^3/uL (140-400) Neutrophils (%) (Auto) 80 % (31-73) 73 % (31-73) Lymphocytes (%) (Auto) 9 % (24-48) 15 % (24-48) Monocytes (%) (Auto) 9 % (0-9) 11 % (0-9) Eosinophils (%) (Auto) 0 % (0-3) 1 % (0-3) Basophils (%) (Auto) 1 % (0-3) 1 % (0-3) Neutrophils # (Auto) 10.2 x10^3uL (1.8-7.7) 6.6 x10^3uL (1.8-7.7) Lymphocytes # (Auto) 1.2 x10^3/uL (1.0-4.8) 1.3 x10^3/uL (1.0-4.8) Monocytes # (Auto) 1.2 x10^3/uL (0.0-1.1) 1.0 x10^3/uL (0.0-1.1) Eosinophils # (Auto) 0.0 x10^3/uL (0.0-0.7) 0.1 x10^3/uL (0.0-0.7) Basophils # (Auto) 0.1 x10^3/uL (0.0-0.2) 0.0 x10^3/uL (0.0-0.2) Prothrombin Time 11.7 SEC (9.4-11.4) Prothromb Time International Ratio 1.2 (0.9-1.1) Sodium Level 136 mmol/L (136-145) 140 mmol/L (136-145) Potassium Level 4.4 mmol/L (3.5-5.1) 4.0 mmol/L (3.5-5.1) Chloride Level 102 mmol/L (98-107) 108 mmol/L (98-107) Carbon Dioxide Level 28 mmol/L (21-32) 27 mmol/L (21-32) Anion Gap 6 (6-14) 5 (6-14) Blood Urea Nitrogen 27 mg/dL (7-20) 19 mg/dL (7-20) Creatinine 0.9 mg/dL (0.6-1.0) 0.8 mg/dL (0.6-1.0) Estimated GFR (Cockcroft-Gault) 60.6 69.4 BUN/Creatinine Ratio 30 (6-20) Glucose Level 156 mg/dL (70-99) 109 mg/dL (70-99) Lactic Acid Level 1.8 mmol/L (0.4-2.0) Calcium Level 9.1 mg/dL (8.5-10.1) 8.7 mg/dL (8.5-10.1) Total Bilirubin 0.4 mg/dL (0.2-1.0) Aspartate Amino Transf (AST/SGOT) 19 U/L (15-37) Alanine Aminotransferase (ALT/SGPT) 26 U/L (14-59) Alkaline Phosphatase 169 U/L (46-116) Total Protein 7.4 g/dL (6.4-8.2) Albumin 3.0 g/dL (3.4-5.0) Albumin/Globulin Ratio 0.7 (1.0-1.7) Glucose (Fingerstick) 89 mg/dL (70-99) 163 mg/dL (70-99) Test 11/27/17 07:41 11/27/17 11:35 Glucose (Fingerstick) 111 mg/dL (70-99) 155 mg/dL (70-99) Current Medications Medications (Trade) Dose Ordered Sig/Lamont Route PRN Reason Start Time Stop Time Status Last Admin Dose Admin Cefazolin Sodium 1 gm/Sodium Chloride 50 ml @ 100 mls/hr 1X ONCE IV 11/26/17 16:15 11/26/17 17:31 DC 11/26/17 22:22 Vancomycin HCl 1 gm/Sodium Chloride 250 ml @ 250 mls/hr 1X ONCE IV 11/26/17 15:45 11/26/17 16:44 UNV Vancomycin HCl 2 gm/Sodium Chloride 500 ml @ 250 mls/hr 1X ONCE IV 11/26/17 16:15 11/26/17 18:14 DC 11/26/17 17:44 Sodium Chloride 50 ml @ As Directed STK-MED ONCE .ROUTE 11/26/17 18:46 11/26/17 18:47 DC Cefazolin Sodium (Ancef) 1 gm STK-MED ONCE .ROUTE 11/26/17 18:46 11/26/17 18:47 DC Atorvastatin Calcium (Lipitor) 40 mg HS PO 11/27/17 21:00 Potassium Chloride (Klor-Con) 40 meq BIDWMEALS PO 11/27/17 08:00 11/27/17 08:09 Tolnaftate (Tinactin) 30 diane DAILY PRN TP Antifungal 11/27/17 00:15 Acetaminophen (Tylenol) 2 mg PRN TID PRN PO PAIN / TEMP 11/27/17 00:15 11/27/17 00:55 DC Non-Formulary Medication (Amino Acids/ Protein Hydrolys (Pro-Stat Liquid)) 30 ml DAILY PO 11/27/17 09:00 UNV Aspirin (Aspirin Enteric Coated) 81 mg HS PO 11/27/17 21:00 Lactobacillus Rhamnosus (Culturelle) 1 cap BID PO 11/27/17 09:00 11/27/17 08:09 Artificial Tears (Artificial Tears) 1 drop QHS OU 11/27/17 21:00 Docusate Sodium (Colace) 200 mg DAILY PO 11/27/17 09:00 11/27/17 08:09 Furosemide (Lasix) 40 mg DAILY PO 11/27/17 09:00 11/27/17 08:09 Insulin Glargine (Lantus) 42 units DAILY07 SQ 11/27/17 07:00 11/27/17 08:19 Insulin Glargine (Lantus) 65 units HS SQ 11/27/17 21:00 Insulin Human Lispro (HumaLOG) 17 units DAILYWBKFT SQ 11/27/17 08:00 11/27/17 08:19 Insulin Human Lispro (HumaLOG) 24 units BID94 SQ 11/27/17 09:00 Cancel Multi-Ingred Cream/Lotion/Oil/ Oint (Hydrocerin) 1 diane QHS TP 11/27/17 07:30 Ondansetron HCl (Zofran Odt) 4 mg PRN Q6HRS PRN PO NAUSEA/VOMITING 11/27/17 00:15 Rivaroxaban (Xarelto) 20 mg DAILYWSUP PO 11/27/17 17:00 Multivitamins/ Minerals (I-Olivia) 1 tab DAILY PO 11/27/17 09:00 11/27/17 08:08 Vancomycin HCl (Vanco Per Pharmacy) 1 each PRN DAILY PRN MC SEE COMMENTS 11/27/17 00:30 11/27/17 07:32 Vancomycin HCl 2 gm/Sodium Chloride 500 ml @ 250 mls/hr 1X ONCE IV 11/27/17 01:00 11/27/17 02:59 DC 11/27/17 02:29 Cefazolin Sodium 2 gm/Dextrose 50 ml @ 100 mls/hr Q8HRS IV 11/27/17 01:00 11/27/17 05:58 Acetaminophen (Tylenol) 1,000 mg PRN TID PRN PO PAIN / TEMP 11/27/17 00:55 11/27/17 01:21 Vancomycin HCl 1.5 gm/Sodium Chloride 500 ml @ 250 mls/hr Q12H IV 11/27/17 18:00 Vancomycin HCl (Vancomycin Trough Level) 1 each 1X ONCE MC 11/28/17 17:30 11/28/17 17:31 Insulin Human Lispro (HumaLOG) 24 units BID@1200,1700 SQ 11/27/17 12:00 11/27/17 13:03 I & O 11/27/17 00:00 Intake Total 1150 ml Output Total 400 ml Balance 750 ml Orders Procedure Category Date Status Time Saline Lock ER 11/26/17 Transmitted 14:47 Cbc W Autodiff LAB 11/26/17 Complete 14:47 Lactic Acid LAB 11/26/17 Complete 14:47 Protime LAB 11/26/17 Complete 14:47 Blood Culture ROLA 11/26/17 In Process 14:47 Pulse Oximetry: PABLO 11/26/17 In Process Standing Order 14:47 Comprehensive LAB 11/26/17 Complete Metabolic Panel 14:47 Tibia Fibula Right RAD 11/26/17 Resulted 14:47 Cefazolin Sodium PHA 11/26/17 Complete (Ancef) 16:15 Ed Bridge Order ADT 11/26/17 Transmitted 15:48 Code Status CODE 11/26/17 Complete 15:48 Vital Signs, Per PABLO 11/26/17 In Process Protocol 15:48 Serbian Diabetic DIET 11/26/17 Complete Assoc Diet Breakfast Vancomycin PHA 11/26/17 Complete (Vancomycin) 16:15 Iv Normal Saline 50ml PHA 11/26/17 Complete (Iv Sodium Chlorid 18:46 Cefazolin Sodium PHA 11/26/17 Complete (Ancef) 18:46 Fall Precautions PABLO 11/26/17 In Process 19:59 Rehab Screening (Pt, REHAB 11/27/17 [address], [address]) 07:00 Admission Screening CONS 11/26/17 Transmitted 20:34 High Risk Dc CONS 11/26/17 Transmitted Readmission 20:34 Mrsa By Pcr LAB 11/26/17 In Process 20:30 Admit Orders ADT 11/26/17 Transmitted Code Status CODE 11/26/17 Transmitted 20:44 Atorvastatin Calcium PHA 11/27/17 In Process (Lipitor) 21:00 Potassium Chloride PHA 11/27/17 In Process Tab (Klor-Con) 08:00 Tolnaftate 1% Topical PHA 11/27/17 In Process Cream (Tinactin) 00:15 Acetaminophen PHA 11/27/17 Complete (Tylenol) 00:15 Aspirin Enteric PHA 11/27/17 In Process Coated (Aspirin 21:00 Lactobacillus PHA 11/27/17 In Process Rhamnosus Gg 09:00 Polyvinyl Alcohol PHA 11/27/17 In Process 1.4% Ophth (Artificial 21:00 Docusate Sodium PHA 11/27/17 In Process (Colace) 09:00 Furosemide Tablet PHA 11/27/17 In Process (Lasix) 09:00 Insulin Glargine PHA 11/27/17 In Process (Lantus) 07:00 Insulin Glargine PHA 11/27/17 In Process (Lantus) 21:00 Insulin Lispro PHA 11/27/17 In Process (Humalog) 08:00 Mineral PHA 11/27/17 In Process Oil/Petrolatum 07:30 Ondansetron Odt PHA 11/27/17 In Process (Zofran Odt) 00:15 Rivaroxaban (Xarelto) PHA 11/27/17 In Process 17:00 Multivitamin I-Olivia PHA 11/27/17 In Process Tablet. (I-Olivia) 09:00 Vancomycin Per PHA 11/27/17 In Process Pharmacy (Vanco Per 00:30 Vancomycin PHA 11/27/17 Complete (Vancomycin) 01:00 Cefazolin Sodium PHA 11/27/17 In Process (Ancef) 01:00 Acetaminophen PHA 11/27/17 In Process (Tylenol) 00:55 Cbc W Autodiff LAB 11/27/17 Complete 05:15 Basic Metabolic Panel LAB 11/27/17 Complete 05:15 Wound Care Consult CONS 11/27/17 Transmitted 07:18 Serbian Diabetic DIET 11/27/17 Transmitted Assoc Diet Breakfast Vancomycin PHA 11/27/17 In Process (Vancomycin) 18:00 Vancomycin, Trough LAB 11/28/17 Verified 17:30 Vancomycin Trough PHA 11/28/17 In Process Level (Vancomycin Trou 17:30 Insulin Lispro PHA 11/27/17 In Process (Humalog) 12:00 Picc Line Insertion PABLO 11/27/17 In Process 08:43 Vital Signs Date Time Temp Pulse Resp B/P (MAP) Pulse Ox O2 Delivery O2 Flow Rate FiO2 11/27/17 11:04 98.1 67 18 112/66 (81) 95 Room Air DAGO SHETH DO Nov 27, 2017 14:05
--- NOTE | 2017-11-27 16:41 | NUR ---
Discharge Note: MARTA RODRIGUEZ Discharge instructions and discharge home medications reviewed with patient and Ricky Che Nurse, and a copy given to patient. All questions have been answered and understanding verbalized. The following instructions and handouts were given: medications, follow up instructions, antibiotic instructions, PICC line, and prescriptions and educational handouts given. Discontinued lines and drains: DL PICC line in place to left upper arm. Peripheral IV to left hand discontinued with no complications. Patient discharged to [facility] with Ricky Casillas staff via private vehicle.
[2017-11-27] MEDS ORDERED: RIVAROXABAN 10 MG TABLET. PO SCH (17:00)
[2017-11-27] MEDS ORDERED: VANCOMYCIN 1.5 GM in IV NORMAL SALINE 500ML 500 ML IV SCH (18:00)
[2017-11-27] MEDS ORDERED: ATORVASTATIN CALCIUM 20 MG TABLET PO SCH (21:00)
[2017-11-27] MEDS ORDERED: POLYVINYL ALCOHOL 1.4% OPHTH SOLUTION 15ML BOTTLE. OU SCH (21:00)
[2017-11-27] MEDS ORDERED: ASPIRIN ENTERIC COATED 81 MG TABLET.DR. PO SCH (21:00)
--- NOTE | 2017-11-28 08:23 | NUR ---
Wound Care Pt discharged prior to arrival of WC team
== END 2017-11-27 17:15 | DRG 638 ==
LOC: ER 14:29 → 1 SOUTH 17:30
PROVIDERS: ADMIT Internal Medicine; ATTEND Internal Medicine
DX: E11.621 Type 2 diabetes mellitus with foot ulcer (principal); L03.115 Cellulitis of right lower limb; E78.00 Pure hypercholesterolemia, unspecified; E11.42 Type 2 diabetes mellitus with diabetic polyneuropathy; I10 Essential (primary) hypertension; M19.90 Unspecified osteoarthritis, unspecified site; L97.509 Non-pressure chronic ulcer of other part of unspecified foot with unspecified severity; Z79.899 Other long term (current) drug therapy; Z85.3 Personal history of malignant neoplasm of breast; Z90.10 Acquired absence of unspecified breast and nipple; Z86.718 Personal history of other venous thrombosis and embolism
CPT/HCPCS: 36415; 36569; 73590; 80048; 80053; 82947; 83605; 85025; 85610; 87040; 87641; J0690; J1815; J3370; J7040; 99285-25

== ENCOUNTER → 2017-12-25 | Outpatient (CLI) | payer MEDICARE, OTHER ==
[2017-11-27 11:04] VITALS: BP 112/66
[~2017-12-25] MED LIST changes: +ACET500T68 PO; +CAPE500T PO; +IOHEXOL 240 MG/ML 50ML VIAL. ONE; +IOHEXOL 240 MG/ML 50ML VIAL. PO ONE; +IOHEXOL 300 MG/ML 75 ML VIAL. IV ONE; +LOPE2CAP88 PO; +METH-37 PO; +ONDA4TAB7 PO
--- NOTE | 2017-12-25 17:08 | RAD ---
CT of the chest, abdomen and pelvis with contrast, 12/25/2017: HISTORY: Breast cancer with bone metastases, elevated tumor markers Multidetector CT imaging was performed following oral and IV administration of contrast. Comparison is made to a study from 10/12/2016. The right breast is surgically absent. No axillary adenopathy is seen. A left PICC extends into the superior vena cava. Several small unchanged thyroid nodules are again noted. There is mild aortic calcific plaquing. There is a 1 cm posterior mediastinal nodule between the aorta and azygos vein along the posterior margin of the mid to lower esophagus. This appears unchanged. There is a small hiatal hernia. There are several tiny pleural or subpleural densities posteriorly in the lower chest bilaterally which were not evident on the previous study. There is no evidence of pleural fluid. No hepatic abnormality is seen. A couple of small dense gallstones are seen within the dependent aspect of the gallbladder. There is no pericholecystic edema. The pancreas is unremarkable. The spleen is of normal size. There are low density lesions in both kidneys which are probably cysts, although some of these are too small to definitively characterize. The kidneys show no evidence of obstruction. No adrenal abnormality is detected. There is moderate aortoiliac calcific plaquing. An inferior vena cava filter is in place. There is an enlarged right common iliac region lymph node measuring 1.6 cm in short axis dimension in the axial plane which appears unchanged. Several periaortic lymph nodes of borderline size also appear unchanged. There are multiple calcified uterine masses compatible with fibroids. There is an unchanged small cystic structure along the right side of the uterus which is probably of ovarian origin. The bowel loops are not dilated. No free fluid or free air is evident in the abdomen or pelvis. There is extensive mixed lytic and sclerotic metastatic disease in the bones, most prominent in the bony pelvis, lumbar spine and sternum. Similar findings were present on the previous study. Vertebral compression fractures at L1, L5 and T9 are unchanged. An internal fixation device is present at the right hip. IMPRESSION: 1. Stable appearing extensive mixed lytic and blastic osseous metastatic disease. 2. Right common iliac adenopathy as well as borderline enlarged periaortic nodes appear unchanged. 3. New tiny subpleural opacities posteriorly in the lung bases may represent atelectasis or scarring, although early pleural metastases cannot be excluded. 4. Multiple other chronic findings as described above. PQRS Compliance Statement: One or more of the following individualized dose reduction techniques were utilized for this examination: 1. Automated exposure control 2. Adjustment of the mA and/or kV according to patient size 3. Use of iterative reconstruction technique Electronically signed by: Brent Ellsworth MD (12/25/2017 5:05 PM) [facility]
== END | disposition home or self-care (01) ==
LOC: CT 07:49
PROVIDERS: ATTEND Internal Medicine Hematology & Oncology
DX: C79.51 Secondary malignant neoplasm of bone (principal); M48.55XD Collapsed vertebra, not elsewhere classified, thoracolumbar region, subsequent encounter for fracture with routine healing; R59.0 Localized enlarged lymph nodes; N85.8 Other specified noninflammatory disorders of uterus; K44.9 Diaphragmatic hernia without obstruction or gangrene; K80.20 Calculus of gallbladder without cholecystitis without obstruction; Z85.3 Personal history of malignant neoplasm of breast
CPT/HCPCS: 71260; 74177; Q9966; Q9967